=== PATIENT | male | born 1955 | race African-American/Black ===

== ENCOUNTER 2020-02-04 17:35 | Emergency (ER) | payer OTHER ==
[2020-02-04] MEDS ORDERED: ONDANSETRON HCL INJ/PF 4 MG/2 ML SDV IV ONE (18:55)
[2020-02-04] MEDS ORDERED: MORPHINE SULFATE 10 MG/ML INJ IV ONE (18:56)
--- NOTE | 2020-02-04 19:05 | ER Document Report ---
ED General - General Mode of Arrival: Ambulatory Information source: Patient TRAVEL OUTSIDE OF THE U[place]S. IN LAST 30 DAYS: No - HPI Patient complains to provider of: Nausea, vomiting, headache Onset: Other - Approximately 4 hours prior to arrival Onset/Duration: Gradual Quality of pain: Throbbing Severity: Moderate Associated symptoms: Headache, Nausea, Vomiting Exacerbated by: Denies Relieved by: Denies Similar symptoms previously: No Recently seen / treated by doctor: No <ZELDA MARES IV - Last Filed: 02/04/20 22:06> <RA GONZALES - Last Filed: 02/05/20 02:29> - General Chief Complaint: Nausea/Vomiting Stated Complaint: NAUSEA/VOMITING,HEADACHE Time Seen by Provider: 02/04/20 18:39 - HPI Notes: This is a 64-year-old male with a history of hypertension, presenting with chief complaint of headache, nausea and vomiting. Patient states symptoms started approximately 4 hours prior to arrival. Patient denies visual changes, slurred speech, unilateral extremity weakness, gait disturbance, chest pain, shortness of breath. Patient states he takes metoprolol and a "blood pressure pill that causes (him) to pee." Patient states he is compliant with his medications and has not been missing any doses. Patient states he drinks occasionally but not in excess. Patient does admit to smoking cigarettes. Patient denies illicit drug use. Patient states nothing is making his symptoms worse or better. (ZELDA MARES IV) - Related Data Allergies/Adverse Reactions: No Known Drug Allergies Allergy (Verified 02/04/20 20:09) Past Medical History - General Information source: Patient - Social History Smoking Status: Current Every Day Smoker Frequency of alcohol use: Occasional Drug Abuse: None Family History: Reviewed & Not Pertinent Patient has suicidal ideation: No Patient has homicidal ideation: No - Past Medical History Cardiac Medical History: Reports: Hx Hypertension Pulmonary Medical History: Reports: None EENT Medical History: Reports: None Neurological Medical History: Reports: None Endocrine Medical History: Reports: None Renal/ Medical History: Reports: None Malignancy Medical History: Reports None GI Medical History: Reports: None Musculoskeletal Medical History: Reports None Skin Medical History: Reports None Psychiatric Medical History: Reports: None Traumatic Medical History: Reports: None Infectious Medical History: Reports: None <ZELDA MARES IV - Last Filed: 02/04/20 22:06> Review of Systems - Review of Systems Constitutional: No symptoms reported EENT: No symptoms reported Cardiovascular: No symptoms reported Respiratory: No symptoms reported Gastrointestinal: Nausea, Vomiting Genitourinary: No symptoms reported Male Genitourinary: No symptoms reported Musculoskeletal: No symptoms reported Skin: No symptoms reported Hematologic/Lymphatic: No symptoms reported Neurological/Psychological: See HPI -: Yes All other systems reviewed and negative <ZELDA MARES IV - Last Filed: 02/04/20 22:06> Physical Exam <ZELDA MARES IV - Last Filed: 02/04/20 22:06> - Vital signs Vitals: Temp 98.8 F 02/04/20 17:36 - Notes Notes: CONSTITUTIONAL [Vital signs reviewed, Patient appears comfortable, Alert and oriented X 3, Normal stature.] HEAD [Atraumatic, Normocephalic.] EYES [Eyes are normal to inspection, No discharge from eyes, Extraocular muscles intact, Sclera are normal, Conjunctiva are normal.] ENT [Ears normal to inspection, Nose examination normal, Posterior pharynx normal, Mouth normal to inspection.] NECK [Normal ROM, No jugular venous distention, No meningeal signs, no carotid bruit.] RESPIRATORY CHEST [Chest is nontender, Breath sounds normal, No respiratory distress.] CARDIOVASCULAR [RRR, No murmurs, Normal S1 S2, No rub, No gallop.] ABDOMEN [Abdomen is nontender, No pulsatile masses, No other masses, Bowel sounds normal, No distension, No peritoneal signs, No hernias.] BACK [There is no CVA Tenderness, There is no tenderness to palpation, Normal inspection.] UPPER EXTREMITY [Inspection normal, No cyanosis, No clubbing, No edema, 2+ radial pulses.] LOWER EXTREMITY [Inspection normal, No cyanosis, No clubbing, No edema, No calf tenderness, 2+ femoral pulses.] NEURO [No focal motor deficits, No focal sensory deficits, Speech normal.] SKIN [Skin is warm, Skin is dry, Skin is normal color.] LYMPHATIC [No adenopathy in neck.] PSYCHIATRIC [Normal affect. ] (ZELDA MARES IV) Course - Laboratory Result Diagrams: 02/04/20 19:00 02/04/20 19:00 - Transfer of Care Care transferred to following provider: dr. gonzales at 2200 hours <ZELDA MARES IV - Last Filed: 02/04/20 22:06> - Laboratory Result Diagrams: 02/04/20 19:00 02/04/20 19:00 - Diagnostic Test Radiology reviewed: Image reviewed, Reports reviewed <RA GONZALES - Last Filed: 02/05/20 02:29> - Re-evaluation Re-evalutation: 02/05/20 02:27 The patient was signed out to me at shift change since some of his labs and treatments were still pending. The patient felt much better after treatment in the ER. His headache subsided and his blood pressure normalized. The patient's head CT showed no acute process. The patient is on Hydralazine and Metoprolol for high blood pressure but his PCP is in [place] and he is not going home any time soon. I told the patient he should follow up with a local PCP for management of his blood pressure. (STEFANIERA) - Vital Signs Vital signs: Temp Pulse Resp BP Pulse Ox 98.8 F 83 25 H 121/66 100 02/04/20 18:30 02/04/20 18:30 02/04/20 23:00 02/04/20 23:52 02/04/20 23:00 - Laboratory Laboratory results interpreted by me: 02/04/20 02/04/20 02/04/20 19:00 19:00 22:07 RBC 3.77 L Hgb 13.4 L MCV 102 H MCH 35.7 H RDW 17.5 H Sodium 136.7 L Creatinine 1.32 H Est GFR (MDRD) Non-Af 55 L Total Bilirubin 1.4 H Total Protein 8.5 H Urine Protein 100 H Urine Ketones 20 H Urine Blood SMALL H Discharge <ZELDA MARES IV - Last Filed: 02/04/20 22:06> <RA GONZALES - Last Filed: 02/05/20 02:29> - Discharge Clinical Impression: Hypertensive urgency Acute headache Qualifiers: Headache type: unspecified Intractability: not intractable Qualified Code(s): R51 - Headache Condition: Stable Disposition: HOME, SELF-CARE Instructions: Headache ([facility]), High Blood Pressure ([facility]) Additional Instructions: Keep a log of your blood pressures in the days and weeks to come. Follow up with your primary care doctor or another primary care doctor in the area for better management of your blood pressure. Use over the counter Tylenol, Motrin and Benadryl in combination for future headaches.
[2020-02-04 19:54] LABS: ALKALINE PHOSPHATASE 107 U/L (38-126); ANION GAP 12 (5-19); ASPARTATE AMINO TRANSFERASE 36 U/L (17-59); BILIRUBIN,DIRECT 0.2 mg/dL (0.0-0.4); BILIRUBIN,TOTAL 1.4 mg/dL (0.2-1.3); BLOOD UREA NITROGEN 18 mg/dL (7-20); CARBON DIOXIDE 26 mmol/L (22-30); CHLORIDE 99 mmol/L (98-107); GLUCOSE 103 mg/dL (75-110); TOTAL PROTEIN 8.5 g/dL (6.3-8.2)
--- NOTE | 2020-02-04 19:55 | RADIOLOGY REPORT (SQ) ---
EXAM DESCRIPTION: CT HEAD WITHOUT IMAGES COMPLETED DATE/TIME: 02/04/2020 7:39 pm REASON FOR STUDY: headache, high bp, n/v COMPARISON: None. TECHNIQUE: Axial images acquired through the brain without intravenous contrast. Images reviewed wi th bone, brain and subdural windows. Additional sagittal and coronal reconstructions were generated. Images stored on PACS. All CT scanners at this facility use dose modulation, iterative reconstruction, and/or weight based d osing when appropriate to reduce radiation dose to as low as reasonably achievable (ALARA). [facility]: Dose Right [facility]: CareDose [facility]: Dose Right [facility]: Teradose 4D [facility]: Memento RADIATION DOSE: CT Rad equipment meets quality standard of care and radiation dose reduction techniq ues were employed. CTDIvol: 53.2 mGy. DLP: 1017 mGy-cm. mGy. LIMITATIONS: None. FINDINGS: VENTRICLES: Normal size and contour. CEREBRUM: No masses. No hemorrhage. No midline shift. No evidence for acute infarction. Normal gra y/white matter differentiation. No areas of low density in the white matter. CEREBELLUM: No masses. No hemorrhage. No alteration of density. No evidence for acute infarction. EXTRAAXIAL SPACES: No fluid collections. No masses. ORBITS AND GLOBE: No intra- or extraconal masses. Normal contour of globe without masses. CALVARIUM: No fracture. PARANASAL SINUSES: No fluid or mucosal thickening. SOFT TISSUES: No mass or hematoma. OTHER: No other significant finding. IMPRESSION: NORMAL BRAIN CT WITHOUT CONTRAST. EVIDENCE OF ACUTE STROKE: NO. COMMENT: Quality ID # [id number]: Final reports with documentation of one or more dose reduction techniques (e.g., Automated exposure control, adjustment of the mA and/or kV according to patient size, use of iterative reconstruction technique) TECHNICAL DOCUMENTATION: JOB ID: [id number] 2010 [employer]- All Rights Reserved Reading location - IP/workstation name: [email or web address]
[2020-02-04 19:59] LABS: ABSOLUTE BASOPHILS # (AUTO) 0.1 10^3/uL (0.0-0.2); ABSOLUTE MONOCYTES (AUTO) 0.6 10^3/uL (0.1-1.4); TOTAL CELLS COUNTED % (AUTO) 100 %
[2020-02-04 20:04] LABS: ABSOLUTE LYMPHOCYTES (AUTO) 1.3 10^3/uL (0.5-4.7); ABSOLUTE NEUT (AUTO) 4.5 10^3/uL (1.7-8.2); BASOPHILS % (AUTO) 0.9 % (0-2); EOSINOPHILS % (AUTO) 0.1 % (0-6); HEMATOCRIT 38.5 % (37.9-51.0); HEMOGLOBIN 13.4 g/dL (13.5-17.0); LYMPHOCYTES % (AUTO) 20.9 % (13-45); MEAN CORPUSCULAR HEMOGLOBIN 35.7 pg (27.0-33.4); MEAN CORPUSCULAR VOLUME 102 fl (80-97); MONOCYTES % (AUTO) 8.5 % (3-13); PLATELET COUNT 264 10^3/uL (150-450); RED BLOOD COUNT 3.77 10^6/uL (4.35-5.55); RED CELL DISTRIBUTION WIDTH 17.5 % (11.5-14.0); SEGMENTED NEUTROPHILS % (AUTO) 69.6 % (42-78); WHITE BLOOD COUNT 6.5 10^3/uL (4.0-10.5)
[2020-02-04] MEDS ORDERED: LABETALOL HCL INJ 20 MG/4 ML DISP.SYRIN IV ONE ×2 (20:07→21:07)
[2020-02-04] MEDS ORDERED: METOCLOPRAMIDE HCL INJ/PF 10 MG/2 ML SDV IV ONE (20:17)
[2020-02-04] MEDS ORDERED: PROMETHAZINE HCL INJ 25 MG/1 ML VIAL IV ONE (21:45)
[2020-02-04] MEDS ORDERED: HYDRALAZINE HCL INJ/PF 20 MG/1 ML SDV IV ONE (21:45)
[2020-02-04 22:29] LABS: APPEARANCE,URINE CLEAR; BILIRUBIN,URINE NEGATIVE (NEGATIVE); COLOR,URINE YELLOW; GLUCOSE, URINE NEGATIVE (NEGATIVE); KETONES,URINE 20 mg/dL (NEGATIVE); LEUKOCYTE ESTERASE,URINE NEGATIVE (NEGATIVE); NITRITE,URINE NEGATIVE (NEGATIVE); PROTEIN,URINE 100 mg/dL (NEGATIVE); URINE SPECIFIC GRAVITY 1.016; UROBILINOGEN,URINE NEGATIVE mg/dL (<2.0)
[2020-02-04 22:41] LABS: URINE AMPHETAMINES SCREEN NEGATIVE; URINE BARBITURATES SCREEN NEGATIVE; URINE BENZODIAZEPINES SCREEN NEGATIVE; URINE COCAINE SCREEN NEGATIVE; URINE MARIJUANA (THC) SCREEN NEGATIVE; URINE METHADONE SCREEN NEGATIVE; URINE PHENCYCLIDINE SCREEN NEGATIVE
[2020-02-05 02:47] VITALS: BP 114/72
== END 2020-02-05 02:47 | disposition home or self-care (01) ==
LOC: ER 17:35
DX: I16.0 Hypertensive urgency (principal); R51 Headache; R11.2 Nausea with vomiting, unspecified; I10 Essential (primary) hypertension; Z79.899 Other long term (current) drug therapy; F17.210 Nicotine dependence, cigarettes, uncomplicated
CPT/HCPCS: 96376; 99284; 96374; 96375; 36415; 80307 ×2; 85025; 80053; 81001; 70450; J0360; J3490; J2765; J2270; J2550; J2405

== ENCOUNTER 2020-02-25 11:22 | Emergency (ER) | payer OTHER ==
[2020-02-25] MEDS ORDERED: NORMAL SALINE 1000 ML 1,000 ML IV ONE (12:54)
--- NOTE | 2020-02-25 12:57 | ER Document Report ---
ED General - General Chief Complaint: Low Blood Sugar Stated Complaint: WEAKNESS Time Seen by Provider: 02/25/20 12:50 TRAVEL OUTSIDE OF THE U.S. IN LAST 30 DAYS: No - HPI Patient complains to provider of: weakness Notes: Well-appearing 64-year-old male in no acute distress presents with generalized weakness fatigue malaise. All starting this morning. Patient found to have low blood glucose by paramedics. Patient does not take daily insulin is not diabetic. Denies all other symptoms. Denies fever chills cough. Patient is in the community working at the [employer]. Originally from [place]. Patient does state he has a history of congestive heart failure but is not on any daily diuretics. Has been endorsing bilateral leg swelling, decreased exercise tolerance. Denies chest pain. - Related Data Allergies/Adverse Reactions: No Known Drug Allergies Allergy (Verified 02/04/20 20:09) Past Medical History - Social History Smoking Status: Current Every Day Smoker Family History: Reviewed & Not Pertinent - Past Medical History Cardiac Medical History: Reports: Hx Hypertension Review of Systems - Review of Systems Notes: REVIEW OF SYSTEMS: CONSTITUTIONAL: -fevers, -chills EENT: -eye pain, -difficulty swallowing, -nasal congestion CARDIOVASCULAR: -chest pain, -syncope. RESPIRATORY: -cough, -SOB GASTROINTESTINAL: -abdominal pain, -nausea, -vomiting, -diarrhea GENITOURINARY: -dysuria, -hematuria MUSCULOSKELETAL: -back pain, -neck pain SKIN: -rash or skin lesions. HEMATOLOGIC: -easy bruising or bleeding. LYMPHATIC: -swollen, enlarged glands. NEUROLOGICAL: -altered mental status or loss of consciousness, -headache, -neur ologic symptoms PSYCHIATRIC: -anxiety, -depression. ALL OTHER SYSTEMS REVIEWED AND NEGATIVE. Physical Exam - Vital signs Vitals: Temp 98.1 F 02/25/20 12:18 - Notes Notes: PHYSICAL EXAMINATION: GENERAL: Well-appearing, well-nourished and in no acute distress. HEAD: Atraumatic, normocephalic. EYES: Pupils equal round, sclera anicteric, conjunctiva are normal. ENT: Surgical mask in place. NECK: Normal range of motion, LUNGS: No respiratory Distress, normal chest rise EXTREMITIES: Normal range of motion, No cyanosis. NEUROLOGICAL: Cranial nerves grossly intact. Normal speech, PSYCH: Normal mood, normal affect. SKIN: Warm, Dry, Course - Re-evaluation Re-evalutation: 02/25/20 12:59 Well-appearing 64-year-old man presents with a complaint of weakness. And have incidental finding low blood glucose. 02/25/20 15:08 Patient has no signs of anemia feeling improved. Patient's chest x-ray does have possible pulmonary edema, no hypoxia no supplemental oxygen required. Patient does have elevation in proBNP. Patient has a history of heart failure but is been noncompliant with oral Lasix. Will give dose of IV Lasix in the emergency department. Will write prescription for more oral Lasix. Patient also found to be spilling some blood into his urine. Both have arranged for follow-up with urology and cardiology in the community. Given strict return precautions if anything should worsen or change please return. - Vital Signs Vital signs: Temp Pulse Resp BP Pulse Ox 98.1 F 100 02/25/20 12:18 02/25/20 12:21 - Laboratory Result Diagrams: 02/25/20 13:20 02/25/20 13:20 Laboratory results interpreted by me: 02/25/20 02/25/20 02/25/20 11:28 13:20 13:20 RBC MCV MCH RDW Baso % (Auto) Creatinine 1.30 H Est GFR (MDRD) Non-Af 56 L POC Glucose 61 L NT-Pro-B Natriuret Pep 425 H Total Protein 8.5 H Urine Protein Urine Ketones Urine Blood 02/25/20 02/25/20 13:20 14:21 RBC 3.92 L MCV 103 H MCH 36.0 H RDW 17.2 H Baso % (Auto) 2.2 H Creatinine Est GFR (MDRD) Non-Af POC Glucose NT-Pro-B Natriuret Pep Total Protein Urine Protein >=500 H Urine Ketones 20 H Urine Blood MODERATE H - EKG Interpretation by Me Additional EKG results interpreted by me: 02/25/20 15:08 Sinus rhythm, no ST elevations or depressions, no pathologic T wave inversions, normal IA, normal QRS. Discharge - Discharge Clinical Impression: Weakness Condition: Stable Disposition: HOME, SELF-CARE Instructions: Hematuria ([facility]), Congestive Heart Failure ([facility]) Prescriptions: Furosemide [Lasix 40 mg Tablet] 40 mg PO QAM #14 tablet Referrals: WILFRIDO LOPEZ MD [ACTIVE STAFF] - Follow up as needed POINT,ABDON Mendoza MD [NO LOCAL MD] - Follow up as needed
[2020-02-25 13:54] LABS: ABSOLUTE BASOPHILS # (AUTO) 0.1 10^3/uL (0.0-0.2); ABSOLUTE LYMPHOCYTES (AUTO) 1.4 10^3/uL (0.5-4.7); ABSOLUTE MONOCYTES (AUTO) 0.2 10^3/uL (0.1-1.4); ABSOLUTE NEUT (AUTO) 2.3 10^3/uL (1.7-8.2); BASOPHILS % (AUTO) 2.2 % (0-2); EOSINOPHILS % (AUTO) 0.5 % (0-6); HEMATOCRIT 40.2 % (37.9-51.0); HEMOGLOBIN 14.1 g/dL (13.5-17.0); MEAN CORPUSCULAR VOLUME 103 fl (80-97); MONOCYTES % (AUTO) 4.6 % (3-13); PLATELET COUNT 261 10^3/uL (150-450); RED BLOOD COUNT 3.92 10^6/uL (4.35-5.55); RED CELL DISTRIBUTION WIDTH 17.2 % (11.5-14.0); SEGMENTED NEUTROPHILS % (AUTO) 57.7 % (42-78); TOTAL CELLS COUNTED % (AUTO) 100 %
[2020-02-25 14:06] LABS: CARBON DIOXIDE 22 mmol/L (22-30); TOTAL PROTEIN 8.5 g/dL (6.3-8.2)
[2020-02-25 14:09] LABS: ALKALINE PHOSPHATASE 103 U/L (38-126); ANION GAP 16 (5-19); ASPARTATE AMINO TRANSFERASE 43 U/L (17-59); BILIRUBIN,DIRECT 0.1 mg/dL (0.0-0.4); BILIRUBIN,TOTAL 1.1 mg/dL (0.2-1.3); BLOOD UREA NITROGEN 19 mg/dL (7-20); CALCIUM 9.4 mg/dL (8.4-10.2); CHLORIDE 100 mmol/L (98-107); GLUCOSE 104 mg/dL (75-110); POTASSIUM 4.7 mmol/L (3.6-5.0)
[2020-02-25 14:25] LABS: NT PRO BNP 425 pg/mL (<125)
[2020-02-25 14:27] LABS: TROPONIN I < 0.012 ng/mL
[2020-02-25 14:35] LABS: FREE T4 (FREE THYROXINE) 0.88 ng/dL (0.78-2.19)
[2020-02-25 14:37] LABS: APPEARANCE,URINE CLEAR; BILIRUBIN,URINE NEGATIVE (NEGATIVE); COLOR,URINE YELLOW; GLUCOSE, URINE NEGATIVE (NEGATIVE); KETONES,URINE 20 mg/dL (NEGATIVE); PROTEIN,URINE >=500 mg/dL (NEGATIVE); UROBILINOGEN,URINE NEGATIVE mg/dL (<2.0)
[2020-02-25 14:49] LABS: THYROID STIMULATING HORMONE 1.01 uIU/mL (0.47-4.68)
[2020-02-25] MEDS ORDERED: FUROSEMIDE INJ/PF 20 MG/2 ML SDV IV ONE (15:06)
--- NOTE | 2020-02-25 15:28 | RADIOLOGY REPORT (SQ) ---
EXAM DESCRIPTION: CHEST SINGLE VIEW IMAGES COMPLETED DATE/TIME: 02/25/2020 3:10 pm REASON FOR STUDY: Weakness COMPARISON: None. EXAM PARAMETERS: NUMBER OF VIEWS: One view. TECHNIQUE: Single frontal radiographic view of the chest acquired. RADIATION DOSE: NA LIMITATIONS: None. FINDINGS: LUNGS AND PLEURA: No opacities, masses or pneumothorax. No pleural effusion. MEDIASTINUM AND HILAR STRUCTURES: No masses. Contour normal. HEART AND VASCULAR STRUCTURES: Heart normal in size. Normal vasculature. BONES: No acute findings. HARDWARE: None in the chest. OTHER: No other significant finding. IMPRESSION: NO ACUTE RADIOGRAPHIC FINDING IN THE CHEST. TECHNICAL DOCUMENTATION: JOB ID: [id number] 2010 [employer]- All Rights Reserved Reading location - IP/workstation name: [email or web address]
[2020-02-25 15:57] VITALS: BP 189/100
--- NOTE | 2020-02-25 18:11 | EKG REPORT ---
SEVERITY:- ABNORMAL ECG - SINUS RHYTHM PROBABLE LEFT ATRIAL ABNORMALITY NONSPECIFIC INTRAVENTRICULAR CONDUCTION DELAY ABNRM R PROG, CONSIDER ASMI OR LEAD PLACEMENT : Confirmed by: Raji Cervantes MD 25-Feb-2020 18:10:52
== END 2020-02-25 15:59 | disposition home or self-care (01) ==
LOC: ER 11:22
DX: R53.1 Weakness (principal); I50.9 Heart failure, unspecified; E16.2 Hypoglycemia, unspecified; F17.200 Nicotine dependence, unspecified, uncomplicated; R31.9 Hematuria, unspecified; Z91.14 Patient's other noncompliance with medication regimen; R79.89 Other specified abnormal findings of blood chemistry
CPT/HCPCS: 93005; 99285; 96361; 96374; 36415; 87086; 84439; 82962; 84443; 85025; 80053; 81001; 84484; 83880; 71045; 93010; J1940; J7030

== ENCOUNTER 2020-02-26 11:27 | Observation (INO) | payer OTHER ==
[2020-02-26] MEDS ORDERED: ONDANSETRON HCL INJ/PF 4 MG/2 ML SDV IV ONE (12:11)
[2020-02-26] MEDS ORDERED: FENTANYL CITRATE INJ/PF 100 MCG/2 ML AMPUL IV ONE (12:11)
--- NOTE | 2020-02-26 12:33 | ER Document Report ---
ED General - General Chief Complaint: Chest Pain Stated Complaint: CHEST PAIN Time Seen by Provider: 02/26/20 11:38 Notes: 64-year-old male presents with severe chest pain throughout his entire anterior chest radiating down to his belly through to his back and all 4 extremities. He says it started this morning but actually began yesterday after he left the ED and is gotten worse since then. Has been nauseous and has not been anything all day today. No fever no cough no shortness of breath. He was seen here yesterday for fatigue and diagnosed with mild CHF for the first time. He did not fill his Lasix and has previously been noncompliant. He is visiting from [facility] [place]. He has a history of hypertension and says he took his meds this morning. TRAVEL OUTSIDE OF THE [place].S. IN LAST 30 DAYS: No - Related Data Allergies/Adverse Reactions: No Known Drug Allergies Allergy (Verified 02/04/20 20:09) Past Medical History - General Information source: Patient - Social History Smoking Status: Current Some Day Smoker Smoking Education Provided: Yes - The patient ED visit today was directly related to their abuse of tobacco. Family History: Reviewed & Not Pertinent - Past Medical History Cardiac Medical History: Reports: Hx Congestive Heart Failure, Hx Hypertension Past Surgical History: Reports: Hx Orthopedic Surgery - R knee Review of Systems - Review of Systems Notes: REVIEW OF SYSTEMS GEN: Denies fever, chills, weight loss ENT: Denies sore throat, nasal discharge, ear pain EYES: Denies blurry vision, eye pain, discharge CV: See HPI RESP: Denies cough, shortness of breath, wheezing GI: The HPI MSK: Denies joint pain/swelling, edema, SKIN: Denies rash, skin lesions LYMPH: Denies swollen glands/lymph nodes NEURO: Denies headache, focal weakness or numbness, dizziness PSYCH: Denies depression, suicidal or homicidal ideation PHYSICAL EXAMINATION General: Anxious in pain nondiaphoretic Head: Atraumatic, normocephalic ENT: Mouth normal, oropharynx moist, no exudates or tonsillar enlargement Eyes: Conjunctiva normal, pupils equal, lids normal Neck: No JVD, supple, no guarding CVS: Normal rate, regular rhythm, no murmurs Resp: No resp distress, equal and normal breath sounds bilaterally GI: Diffuse abdominal tenderness g Ext: No deformities, no edema, normal range of motion in upper and lower ext Back: No CVA or midline TTP Skin: No rash, warm Lymphatic: No lymphadeopathy noted Neuro: Awake, alert. Face symmetric. GCS 15. Physical Exam - Vital signs Vitals: Temp Resp Pulse Ox 98.5 F 15 99 02/26/20 11:44 02/26/20 11:44 02/26/20 11:44 Course - Re-evaluation Re-evalutation: 02/26/20 14:51 Patient presents with chest and abdominal pain in the setting of recently diagnosed CHF. He is hypertensive and looks sick Concern for aortic dissection Placed IV myself. CTA chest and pelvis negative troponin detectable but not impressively high and EKG is nonspecific. Patient's heart score is 5. His lipase is negative so doubt pancreatitis, on repeat exam he does not have any pain or tenderness in the belly He will be admitted for cardiac work-up and was discussed with Dr. Souza. - Vital Signs Vital signs: Temp Pulse Resp BP Pulse Ox 98.5 F 15 99 02/26/20 11:44 02/26/20 11:44 02/26/20 11:44 - Laboratory Result Diagrams: 02/26/20 12:10 02/26/20 12:10 Laboratory results interpreted by me: 02/26/20 02/26/20 12:10 12:10 RBC 3.81 L MCV 103 H MCH 35.8 H RDW 16.7 H Sodium 136.9 L Chloride 95 L BUN 24 H Creatinine 1.55 H Est GFR ( Amer) 55 L Est GFR (MDRD) Non-Af 46 L - Diagnostic Test Radiology reviewed: Image reviewed, Reports reviewed - EKG Interpretation by Ia EKG shows normal: Sinus rhythm Rate: Normal Rhythm: NSR When compared to previous EKG there are: Previous EKG unavailable - No ST change s or T wave inversions Procedures - Ultrasound/Bedside Ultrasound/Bedside Ultrasound: Other - IV placement left upper extremity ultrasound-guided - Additional Procedures IV insertion Additional Procedures: IV insertion - 20-gauge attempted right deep brachial f ben. Attempted left the brachial successful. Maury blood. Flush and secured. Ultrasound was used. Sterile technique was used. Discharge - Discharge Clinical Impression: Chest pain Qualifiers: Chest pain type: unspecified Qualified Code(s): R07.9 - Chest pain, unspecified Condition: Poor Disposition: ADMITTED OBSERVATION Admitting Provider: Gregory (Hospitalist) Unit Admitted: Telemetry
[2020-02-26 12:37] LABS: ABSOLUTE BASOPHILS # (AUTO) 0.1 10^3/uL (0.0-0.2); ABSOLUTE LYMPHOCYTES (AUTO) 1.7 10^3/uL (0.5-4.7); ABSOLUTE MONOCYTES (AUTO) 0.9 10^3/uL (0.1-1.4); ABSOLUTE NEUT (AUTO) 6.6 10^3/uL (1.7-8.2); BASOPHILS % (AUTO) 0.8 % (0-2); EOSINOPHILS % (AUTO) 0.2 % (0-6); HEMATOCRIT 39.3 % (37.9-51.0); HEMOGLOBIN 13.6 g/dL (13.5-17.0); LYMPHOCYTES % (AUTO) 18.1 % (13-45); MEAN CORPUSCULAR HEMOGLOBIN 35.8 pg (27.0-33.4); MEAN CORPUSCULAR HGB CONC 34.7 g/dL (32.0-36.0); MEAN CORPUSCULAR VOLUME 103 fl (80-97); MONOCYTES % (AUTO) 9.7 % (3-13); PLATELET COUNT 244 10^3/uL (150-450); RED BLOOD COUNT 3.81 10^6/uL (4.35-5.55); RED CELL DISTRIBUTION WIDTH 16.7 % (11.5-14.0); SEGMENTED NEUTROPHILS % (AUTO) 71.2 % (42-78); TOTAL CELLS COUNTED % (AUTO) 100 %
[2020-02-26 12:41] LABS: WHITE BLOOD COUNT 9.2 10^3/uL (4.0-10.5)
[2020-02-26 13:00] LABS: ANION GAP 14 (5-19); BLOOD UREA NITROGEN 24 mg/dL (7-20); CALCIUM 9.8 mg/dL (8.4-10.2); CARBON DIOXIDE 28 mmol/L (22-30); CHLORIDE 95 mmol/L (98-107); GLUCOSE 106 mg/dL (75-110); POTASSIUM 4.5 mmol/L (3.6-5.0)
--- NOTE | 2020-02-26 13:05 | RADIOLOGY REPORT (SQ) ---
EXAM DESCRIPTION: CHEST SINGLE VIEW IMAGES COMPLETED DATE/TIME: 02/26/2020 12:58 pm REASON FOR STUDY: sob COMPARISON: 02/25/2020 EXAM PARAMETERS: NUMBER OF VIEWS: One view. TECHNIQUE: Single frontal radiographic view of the chest acquired. RADIATION DOSE: NA LIMITATIONS: None. FINDINGS: LUNGS AND PLEURA: No opacities, masses or pneumothorax. No pleural effusion. MEDIASTINUM AND HILAR STRUCTURES: No masses. Contour normal. HEART AND VASCULAR STRUCTURES: Heart normal in size. Normal vasculature. BONES: No acute findings. HARDWARE: None in the chest. OTHER: No other significant finding. IMPRESSION: NO ACUTE RADIOGRAPHIC FINDING IN THE CHEST. TECHNICAL DOCUMENTATION: JOB ID: [id number] 2010 [employer]- All Rights Reserved Reading location - IP/workstation name: [email or web address]
--- NOTE | 2020-02-26 13:16 | RADIOLOGY REPORT (SQ) ---
EXAM DESCRIPTION: CTA CHEST IMAGES COMPLETED DATE/TIME: 02/26/2020 1:00 pm REASON FOR STUDY: Chest pain COMPARISON: None. TECHNIQUE: CT scan of the chest performed using helical scanning technique with dynamic intravenous contrast injection. Images reviewed with lung, soft tissue and bone windows. Reconstructed coronal and sagittal MPR images reviewed. Additional 3 dimensional post-processing performed to develop Maximal Intensity Projection images (MT P). All images stored on PACS. All CT scanners at this facility use dose modulation, iterative reconstruction, and/or weight based d osing when appropriate to reduce radiation dose to as low as reasonably achievable (ALARA). [facility]: Dose Right [facility]: CareDose [facility]: Dose Right [facility]: Teradose 4D [facility]: Switchfly CONTRAST TYPE AND DOSE: contrast/concentration: Isovue 350.00 mmol/ml; Total Contrast Delivered: 93. 0 ml; Total Saline Delivered: 70.0 ml Contrast bolus adequate for pulmonary arteries and aorta. RENAL FUNCTION: See abdomen RADIATION DOSE: CT Rad equipment meets quality standard of care and radiation dose reduction techniq ues were employed. CTDIvol: 10.8 - 14.2 mGy. DLP: 1312 mGy-cm. . LIMITATIONS: None. FINDINGS: LUNGS AND PLEURA: No masses, infiltrates, or pneumothorax. No pleural effusions or pleura l calcifications. AORTA AND GREAT VESSELS: No aneurysm. Contrast bolus not optimized for the aorta. HEART: No pericardial effusion. Scattered coronary atherosclerosis. Normal heart size. Normal right to left ventricular ratio. PULMONARY ARTERIES: No emboli visualized in the main pulmonary arteries or the segmental branches. HILAR AND MEDIASTINAL STRUCTURES: No identified masses or abnormal nodes. HARDWARE: None in the chest. UPPER ABDOMEN: See separate report of the CT of the abdomen. THYROID AND OTHER SOFT TISSUES: No masses. No adenopathy. BONES: No acute or significant finding. 3D MIPS: Confirm above findings. OTHER: No other significant finding. IMPRESSION: 1. No evidence of pulmonary embolus. No acute aortic pathology. 2. No other evidence of acute intrathoracic process. 3. Coronary atherosclerosis. COMMENT: Quality ID # [id number]: Final reports with documentation of one or more dose reduction techniques (e.g., Automated exposure control, adjustment of the mA and/or kV according to patient size, use of iterative reconstruction technique) TECHNICAL DOCUMENTATION: JOB ID: [id number] 2011 [employer]- All Rights Reserved Reading location - IP/workstation name: [email or web address]
[2020-02-26] MEDS ORDERED: NORMAL SALINE 1000 ML 1,000 ML IV ONE (13:25)
--- NOTE | 2020-02-26 13:59 | RADIOLOGY REPORT (SQ) ---
EXAM DESCRIPTION: CTA ABDOMEN/PELVIS W WO IMAGES COMPLETED DATE/TIME: 02/26/2020 1:00 pm REASON FOR STUDY: cp to abd COMPARISON: None TECHNIQUE: CT scan of the abdominal aorta extending to the iliac bifurcation performed with and with out intravenous contrast using helical scanning technique with dynamic intravenous contrast injection . Images reviewed with lung, soft tissue, and bone windows. Reconstructed coronal and sagittal MPR im ages reviewed. All images stored on PACS. Advanced 3D imaging as volume rendering, MIPS, SSD performed? yes All CT scanners at this facility use dose modulation, iterative reconstruction, and/or weight based d osing when appropriate to reduce radiation dose to as low as reasonably achievable (ALARA). [facility]: Dose Right [facility]: CareDose [facility]: Dose Right [facility]: Teradose 4D [facility]: Plan B Funding CONTRAST TYPE AND DOSE: See chest RENAL FUNCTION: Creatinine 1.30 LIMITATIONS: None. FINDINGS: AORTA AND VESSELS: No aneurysm. No dissection. Renal arteries, SMA, celiac are all patent. 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 LUNG BASES: See same-day chest CT. LIVER: Normal size. No masses or dilated ducts. SPLEEN: Normal size. No focal lesions. PANCREAS: No masses. No significant calcifications. No adjacent inflammation or peripancreatic fluid collections. Pancreatic duct not dilated. GALLBLADDER: No identified stones by CT criteria. No inflammatory changes to suggest cholecystitis. ADRENAL GLANDS: No significant masses or asymmetry. RIGHT KIDNEY AND URETER: No mass, calculi or urinary tract obstruction. LEFT KIDNEY AND URETER: No mass, calculi or urinary tract obstruction. RETROPERITONEUM: No retroperitoneal adenopathy, hemorrhage or masses. BOWEL AND PERITONEAL CAVITY: Small hiatal hernia. No focal bowel wall thickening. No evidence of in testinal obstruction. APPENDIX: Not identified. PELVIS: Decompressed urinary bladder with mild circumferential wall thickening, likely secondary to decompressed state. No pelvic free fluid, adenopathy or mass. ABDOMINAL WALL: No masses. No hernias. BONY STRUCTURES: No significant or acute findings. 3-D IMAGING: Confirms the above findings. OTHER: No other significant finding. IMPRESSION: NO ABDOMINAL AORTIC ANEURYSM, DISSECTION OR SIGNIFICANT STENOSIS. NO OTHER EVIDENCE OF ACUTE INTRA-ABDOMINAL/PELVIC PROCESS. TECHNICAL DOCUMENTATION: JOB ID: [id number] Quality ID # [id number]: Final reports with documentation of one or more dose reduction techniques (e.g., Au tomated exposure control, adjustment of the mA and/or kV according to patient size, use of iterative reconstruction technique) 2010 [email or web address]- All Rights Reserved Reading location - IP/workstation name: [email or web address]
[2020-02-26] MEDS ORDERED: ASPIRIN 325 MG TABLET PO ONE (14:39)
[2020-02-26] MEDS ORDERED: IPRATROPIUM/ALBUTEROL 0.5-2.5 MG/3 ML AMPUL NEB PRN (15:52)
[2020-02-26] MEDS ORDERED: ACETAMINOPHEN 325 MG TABLET PO PRN (15:52)
[2020-02-26] MEDS ORDERED: OXYCODONE-ACETAMINOPHEN 5-325 MG TABLET PO PRN (15:52)
[2020-02-26] MEDS ORDERED: ONDANSETRON HCL INJ/PF 4 MG/2 ML SDV IV PRN (15:52)
[2020-02-26] MEDS ORDERED: PROMETHAZINE HCL INJ 25 MG/1 ML VIAL IV PRN (15:52)
[2020-02-26] MEDS ORDERED: MAGNESIUM HYDROXIDE SUSP 30 ML UDCUP PO PRN (15:52)
[2020-02-26] MEDS ORDERED: TEMAZEPAM 7.5 MG CAPSULE PO PRN (15:52)
[2020-02-26] MEDS ORDERED: HYDRALAZINE HCL INJ/PF 20 MG/1 ML SDV IV PRN (16:00)
[2020-02-26] MEDS ORDERED: METOPROLOL TARTRATE PF/INJ 5 MG/5 ML SDV IV PRN (16:00)
--- NOTE | 2020-02-26 16:28 | EKG REPORT ---
SEVERITY:- BORDERLINE ECG - SINUS RHYTHM PROBABLE LEFT ATRIAL ABNORMALITY BORDERLINE PROLONGED QT INTERVAL : Confirmed by: Raji Cervantes MD 26-Feb-2020 16:28:10
[2020-02-26] MEDS: AMLODIPINE BESYLATE 5 MG TABLET PO SCH (17:04)
[2020-02-26] MEDS: NORMAL SALINE 1000 ML 1,000 ML IV PRN (17:06)
--- NOTE | 2020-02-26 19:52 | PDOC H&P ---
<ELIZABETH ONEAL R - Last Filed: 02/26/20 19:53> History of Present Illness Admission Date/PCP: 02/26/20 15:52 History of Present Illness: RAMIRO BASHIR is a 64 year old male past medical history of tobacco abuse, EtOH abuse, hypertension, CKD, atrial fibrillation, who is here in [facility] from [facility] for work, patient presented to nausea, vomiting, chest pain, hematemesis and hematochezia. This morning patient woke up very nauseous, which was followed by retching and one episode of hematemesis, this was followed with midepigastric chest pain which was constant about 2 hours, felt like pressure, 5 out of 10 on severity scale, no alleviating or exacerbating factor was identified, nonradiating, sweating and subjective fever. Patient also mentions that this morning when he used restroom he noted blood work mixed with his stool. Patient denies any previous history of hematemesis, cirrhosis, endorses history of GERD, denies any history of CAD, had a stress test 10 years ago which was reported as normal, family history is positive for CAD on both mother and father side. In ED a CTA chest, CT abdomen pelvis was unremarkable, was also noted to to be hypertensive, with mildly elevated troponin, and no acute EKG changes. Tex herbert was consulted for admission. Past Medical History Cardiac Medical History: Reports: Congestive Heart Failure, Hypertension Psychiatric Medical History: Denies: Depression Past Surgical History Past Surgical History: Reports: Orthopedic Surgery - R knee Social History Smoking Status: Current Some Day Smoker Frequency of Alcohol Use: Social Drugs: None Hx Prescription Drug Abuse: No Family History Family History: Reviewed & Not Pertinent Parental Family History Reviewed: Yes Children Family History Reviewed: Yes Sibling(s) Family History Reviewed.: Yes Medication/Allergy Home Medications: Metoprolol Tartrate [Lopressor 25 mg Tablet] 25 mg PO DAILY 02/26/20 Allergies/Adverse Reactions: No Known Drug Allergies Allergy (Verified 02/04/20 20:09) Review of Systems Review of Systems: as per hpi Physical Exam Vital Signs: Temp Pulse Resp BP Pulse Ox 97.9 F 72 22 H 190/93 H 100 02/26/20 17:53 02/26/20 17:53 02/26/20 17:53 02/26/20 17:53 02/26/20 17:53 Intake & Output 02/25/20 02/26/20 02/27/20 06:59 06:59 06:59 Intake Total 1035 Balance 1035 Weight 83 kg General appearance: PRESENT: no acute distress, well-developed, well-nourished Head exam: PRESENT: atraumatic, normocephalic Respiratory exam: PRESENT: clear to auscultation julieta. ABSENT: rales, rhonchi, wheezes Cardiovascular exam: PRESENT: RRR. ABSENT: diastolic murmur, rubs, systolic murmur GI/Abdominal exam: PRESENT: normal bowel sounds, soft. ABSENT: distended, guarding, mass, organolmegaly, rebound, tenderness Extremities exam: PRESENT: full ROM. ABSENT: calf tenderness, clubbing, pedal edema Neurological exam: PRESENT: alert, awake, oriented to person, oriented to place, oriented to time, oriented to situation, CN II-XII grossly intact. ABSENT: motor sensory deficit Results Laboratory Results: 02/26/20 12:10 02/26/20 12:10 02/26/20 02/26/20 02/26/20 12:10 12:10 12:10 WBC 9.2 D RBC 3.81 L Hgb 13.6 Hct 39.3 MCV 103 H MCH 35.8 H MCHC 34.7 RDW 16.7 H Plt Count 244 Seg Neutrophils % 71.2 Sodium 136.9 L Potassium 4.5 Chloride 95 L Carbon Dioxide 28 Anion Gap 14 BUN 24 H Creatinine 1.55 H Est GFR ( Amer) 55 L Glucose 106 Calcium 9.8 Lipase 55.0 02/26/20 12:10 Troponin I 0.013 Impressions: Chest X-Ray 02/26/20 11:39 IMPRESSION: NO ACUTE RADIOGRAPHIC FINDING IN THE CHEST. Abdomen/Pelvis CTA 02/26/20 12:12 IMPRESSION: NO ABDOMINAL AORTIC ANEURYSM, DISSECTION OR SIGNIFICANT STENOSIS. NO OTHER EVIDENCE OF ACUTE INTRA-ABDOMINAL/PELVIC PROCESS. Chest/Abdomen CTA 02/26/20 12:12 IMPRESSION: 1. No evidence of pulmonary embolus. No acute aortic pathology. 2. No other evidence of acute intrathoracic process. 3. Coronary atherosclerosis. Assessment and Plan - Diagnosis (1) Chest pain Qualifiers: Chest pain type: unspecified Qualified Code(s): R07.9 - Chest pain, unspecified Is this a current diagnosis for this admission?: Yes Plan: Positive family history of CAD. Had a stress test 10 years ago which was reported as normal as per patient. Minimally elevated troponins. It is possible that this chest pain was due to esophageal retching/bleeding as patient reports severe vomiting and nausea before developing chest pain. Patient has history of EtOH abuse but denies any history of cirrhosis or previous variceal bleeding. Given history of smoking, untreated hypertension, CKD and positive family history patient is high risk for CAD. Admit to telemetry, antiplatelets, statins, optimize BP, sublingual nitroglycerin, IV morphine, consult cardiology for possible stress test for further risk stratification. (2) Hypertensive urgency Is this a current diagnosis for this admission?: Yes Plan: History of uncontrolled hypertension. Presented with mildly elevated troponin, worsening CKD and chest pain. Takes amlodipine at home. Admit to telemetry, JANET, beta-blockers, calcium channel shmuel. Adjust meds as needed. Goal of decreasing blood pressure to 120s 130s in the next 24 to 48 hours. (3) Tobacco abuse Is this a current diagnosis for this admission?: Yes Plan: Counseled on quitting. NicoDerm patch will be provided. (4) History of ETOH abuse Is this a current diagnosis for this admission?: Yes Plan: History of EtOH abuse. Currently only social drinker. Denies any history of withdrawal or DT. Denies any auditory or visual hallucinations. Admit telemetry, monitor for withdrawal. DT precautions. (5) Hematemesis Qualifiers: Nausea presence: with nausea Qualified Code(s): K92.0 - Hematemesis Is this a current diagnosis for this admission?: Yes Plan: Preceded by severe nausea, dry heaves and retching and severe vomiting. Denies any previous history of hematemesis. History of EtOH abuse. Denies any history of cirrhosis or variceal bleeding. CTA chest negative for any dissection or esophageal rupture. Admit to telemetry, monitor H&H, consult surgery for possible upper and lower GI endoscopy. Unfortunately GI consult is not available until 03/03/2020. (6) Hematochezia Is this a current diagnosis for this admission?: Yes Plan: Denies any family or personal history of GI malignancy. History of EtOH abuse. Has never had a colonoscopy. This could be due to upper GI bleed. Hemoglobin stable. Will consult surgery for possible upper and lower GI endoscopy. Unfortunately no GI consult is available until 03/03/2020. <CONCEPCION PASTRANA - Last Filed: 02/27/20 08:09> History of Present Illness Admission Date/PCP: 02/26/20 15:52 History of Present Illness: RAMIRO BASHIR is a 64 year old male Physical Exam Vital Signs: Temp Pulse Resp BP Pulse Ox 98.1 F 79 18 144/74 H 100 02/26/20 23:46 02/27/20 02:00 02/26/20 23:46 02/26/20 23:46 02/26/20 23:46 Intake & Output 02/26/20 02/27/20 02/28/20 06:59 06:59 06:59 Intake Total 2260 Balance 2260 Weight 83 kg Results Laboratory Results: 02/27/20 04:48 02/27/20 04:48 02/26/20 02/26/20 02/26/20 12:10 12:10 12:10 WBC 9.2 D RBC 3.81 L Hgb 13.6 Hct 39.3 MCV 103 H MCH 35.8 H MCHC 34.7 RDW 16.7 H Plt Count 244 Seg Neutrophils % 71.2 Sodium 136.9 L Potassium 4.5 Chloride 95 L Carbon Dioxide 28 Anion Gap 14 BUN 24 H Creatinine 1.55 H Est GFR ( Amer) 55 L Glucose 106 Calcium 9.8 Magnesium Total Bilirubin AST Alkaline Phosphatase Total Protein Albumin Triglycerides Cholesterol LDL Cholesterol Direct VLDL Cholesterol HDL Cholesterol Lipase 55.0 TSH Free T4 02/27/20 02/27/20 02/27/20 04:48 04:48 04:48 WBC 5.7 RBC 3.54 L Hgb 12.7 L Hct 36.5 L MCV 103 H MCH 35.8 H MCHC 34.7 RDW 16.6 H Plt Count 188 Seg Neutrophils % 50.4 Sodium 135.1 L Potassium 3.6 Chloride 99 Carbon Dioxide 27 Anion Gap 9 BUN 21 H Creatinine 1.38 H Est GFR ( Amer) > 60 Glucose 87 Calcium 8.8 Magnesium 1.3 L Total Bilirubin 1.8 H AST 41 Alkaline Phosphatase 79 Total Protein 6.8 Albumin 3.9 Triglycerides 80 Cholesterol 197.36 LDL Cholesterol Direct 96 VLDL Cholesterol 16.0 HDL Cholesterol 88 Lipase TSH 2.24 Free T4 1.51 02/26/20 02/26/20 02/27/20 12:10 18:27 00:34 Troponin I 0.013 0.012 0.019 Impressions: Chest X-Ray 02/26/20 11:39 IMPRESSION: NO ACUTE RADIOGRAPHIC FINDING IN THE CHEST. Abdomen/Pelvis CTA 02/26/20 12:12 IMPRESSION: NO ABDOMINAL AORTIC ANEURYSM, DISSECTION OR SIGNIFICANT STENOSIS. NO OTHER EVIDENCE OF ACUTE INTRA-ABDOMINAL/PELVIC PROCESS. Chest/Abdomen CTA 02/26/20 12:12 IMPRESSION: 1. No evidence of pulmonary embolus. No acute aortic pathology. 2. No other evidence of acute intrathoracic process. 3. Coronary atherosclerosis. Assessment and Plan - Diagnosis (1) Detectable troponin Is this a current diagnosis for this admission?: Yes
[2020-02-26] MEDS ORDERED: CARVEDILOL 12.5 MG TABLET PO SCH (20:00)
[2020-02-26] MEDS: LISINOPRIL 10 MG TABLET PO SCH (21:33)
[2020-02-26] MEDS: PANTOPRAZOLE SODIUM 40 MG VIAL IV SCH (21:33)
[2020-02-26] MEDS ORDERED: ATORVASTATIN CALCIUM 40 MG TABLET PO SCH (22:00)
--- NOTE | 2020-02-26 22:05 | PDOC CONSULTATION ---
Consultation Consult Date: 02/26/20 Attending physician:: ELIZABETH ONEAL Provider Consulted: LORRIE FATIMA Consult reason:: Hematemesis and hematochezia History of Present Illness Admission Date/PCP: 02/26/20 15:52 History of Present Illness: RAMIRO BASHIR is a 64 year old male past medical history of tobacco abuse, EtOH abuse, hypertension, CKD, atrial fibrillation, who is here in [facility] from [facility] for work, patient presented to nausea, vomiting, chest pain, hematemesis and hematochezia. This morning patient woke up very nauseous, which was followed by retching and one episode of hematemesis, this was followed with midepigastric chest pain which was constant about 2 hours, felt like pressure, 5 out of 10 on severity scale, no alleviating or exacerbating factor was identified, nonradiating, sweating and subjective fever. Patient also mentions that this morning when he used restroom he noted blood work mixed with his stool. Patient denies any previous history of hematemesis, cirrhosis, endorses history of GERD, denies any history of CAD, had a stress test 10 years ago which was reported as normal, family history is positive for CAD on both mother and father side. The patient admits to be drinking drinking rum a heavily. In ED a CTA chest, CT abdomen pelvis was unremarkable, was also noted to to be hypertensive, with mildly elevated troponin, and no acute EKG changes. Hospitalist was consulted for admission. Past Medical History Cardiac Medical History: Reports: Congestive Heart Failure, Hypertension Psychiatric Medical History: Reports: Alcohol Dependency Denies: Depression Past Surgical History Past Surgical History: Reports: Orthopedic Surgery - R knee Social History Smoking Status: Current Some Day Smoker Frequency of Alcohol Use: Heavy Drugs: None Hx Prescription Drug Abuse: No Family History Family History: Reviewed & Not Pertinent Parental Family History Reviewed: No Children Family History Reviewed: NA Sibling(s) Family History Reviewed.: NA Medication/Allergy Home Medications: Metoprolol Tartrate [Lopressor 25 mg Tablet] 25 mg PO DAILY 02/26/20 Allergies/Adverse Reactions: No Known Drug Allergies Allergy (Verified 02/04/20 20:09) Review of Systems Constitutional: PRESENT: fatigue Nose, Mouth, and Throat: ABSENT: as per HPI, headache(s), mouth pain, sore throat, vertigo, other Breasts: ABSENT: as per HPI, other Cardiovascular: ABSENT: as per HPI, chest pain, dyspnea on exertion, edema, orthropnea, palpitations, other Respiratory: ABSENT: as per HPI, cough, dyspnea, hemoptysis, sputum, other Gastrointestinal: PRESENT: coffee ground emesis, hematemesis, vomiting Genitourinary: ABSENT: as per HPI, difficulty urinating, dysuria, hematuria, nocturia, other Musculoskeletal: ABSENT: as per HPI, back pain, deformity, joint swelling, muscle weakness, other Integumentary: ABSENT: as per HPI, diaphoresis, erythema, lesions, pruritus, ra sh, wounds, other Neurological: ABSENT: as per HPI, abnormal gait, abnormal movements, abnormal speech, confusion, convulsions, dizziness, focal weakness, frequent falls, lack of coordination, memory loss, numbness, paresthesias, restless legs, syncope, tingling, tremor(s), vertigo, weakness, other Psychiatric: ABSENT: anxiety, depression, homidical ideation, suicidal ideation Endocrine: ABSENT: cold intolerance, heat intolerance, polydipsia, polyuria Hematologic/Lymphatic: ABSENT: easy bleeding, easy bruising Physical Exam Vital Signs: Temp Pulse Resp BP Pulse Ox 99.0 F 87 16 142/77 H 100 02/26/20 19:50 02/26/20 19:50 02/26/20 19:50 02/26/20 19:50 02/26/20 19:50 Intake & Output 02/25/20 02/26/20 02/27/20 06:59 06:59 06:59 Intake Total 1035 Balance 1035 Weight 83 kg General appearance: PRESENT: no acute distress Head exam: PRESENT: normocephalic Eye exam: PRESENT: EOMI Ear exam: PRESENT: normal external ear exam Mouth exam: PRESENT: moist Neck exam: PRESENT: full ROM Respiratory exam: PRESENT: clear to auscultation julieta Cardiovascular exam: PRESENT: RRR Pulses: PRESENT: normal radial pulses, normal femoral pulses Vascular exam: PRESENT: normal capillary refill Breast: PRESENT: Normal GI/Abdominal exam: PRESENT: soft Rectal exam: PRESENT: deferred Extremities exam: PRESENT: full ROM Musculoskeletal exam: PRESENT: full ROM Neurological exam: PRESENT: alert, awake, oriented to person, oriented to place Psychiatric exam: PRESENT: appropriate affect Skin exam: PRESENT: dry Results Laboratory Results: 02/26/20 12:10 02/26/20 12:10 02/26/20 02/26/20 02/26/20 12:10 12:10 12:10 WBC 9.2 D RBC 3.81 L Hgb 13.6 Hct 39.3 MCV 103 H MCH 35.8 H MCHC 34.7 RDW 16.7 H Plt Count 244 Seg Neutrophils % 71.2 Sodium 136.9 L Potassium 4.5 Chloride 95 L Carbon Dioxide 28 Anion Gap 14 BUN 24 H Creatinine 1.55 H Est GFR ( Amer) 55 L Glucose 106 Calcium 9.8 Lipase 55.0 02/26/20 02/26/20 12:10 18:27 Troponin I 0.013 0.012 Impressions: Chest X-Ray 02/26/20 11:39 IMPRESSION: NO ACUTE RADIOGRAPHIC FINDING IN THE CHEST. Abdomen/Pelvis CTA 02/26/20 12:12 IMPRESSION: NO ABDOMINAL AORTIC ANEURYSM, DISSECTION OR SIGNIFICANT STENOSIS. NO OTHER EVIDENCE OF ACUTE INTRA-ABDOMINAL/PELVIC PROCESS. Chest/Abdomen CTA 02/26/20 12:12 IMPRESSION: 1. No evidence of pulmonary embolus. No acute aortic pathology. 2. No other evidence of acute intrathoracic process. 3. Coronary atherosclerosis. Assessment & Plan - Plan Summary Plan Summary: Patient history of EtOH use now with vomiting blood x1 this morning prior to admission. Patient does not have a history of a colonoscopy or upper endoscopy. Because of the vomiting bloody surgical consult was obtained for possible upper endoscopy. We will plan on upper endoscopy in the morning.
[2020-02-27 05:47] LABS: ABSOLUTE BASOPHILS # (AUTO) 0.1 10^3/uL (0.0-0.2); ABSOLUTE EOSINOPHILS # (AUTO) 0.1 10^3/uL (0.0-0.6); ABSOLUTE MONOCYTES (AUTO) 0.6 10^3/uL (0.1-1.4); ABSOLUTE NEUT (AUTO) 2.9 10^3/uL (1.7-8.2); BASOPHILS % (AUTO) 1.1 % (0-2); EOSINOPHILS % (AUTO) 1.4 % (0-6); HEMATOCRIT 36.5 % (37.9-51.0); HEMOGLOBIN 12.7 g/dL (13.5-17.0); MEAN CORPUSCULAR HEMOGLOBIN 35.8 pg (27.0-33.4); MEAN CORPUSCULAR HGB CONC 34.7 g/dL (32.0-36.0); MEAN CORPUSCULAR VOLUME 103 fl (80-97); MONOCYTES % (AUTO) 11.1 % (3-13); PLATELET COUNT 188 10^3/uL (150-450); RED BLOOD COUNT 3.54 10^6/uL (4.35-5.55); RED CELL DISTRIBUTION WIDTH 16.6 % (11.5-14.0); SEGMENTED NEUTROPHILS % (AUTO) 50.4 % (42-78); TOTAL CELLS COUNTED % (AUTO) 100 %; WHITE BLOOD COUNT 5.7 10^3/uL (4.0-10.5)
[2020-02-27] MEDS: NORMAL SALINE 1000 ML 1,000 ML IV PRN (06:08)
[2020-02-27 06:21] LABS: ALBUMIN 3.9 g/dL (3.5-5.0); ALKALINE PHOSPHATASE 79 U/L (38-126); ANION GAP 9 (5-19); ASPARTATE AMINO TRANSFERASE 41 U/L (17-59); BILIRUBIN,DIRECT 0.1 mg/dL (0.0-0.4); BILIRUBIN,TOTAL 1.8 mg/dL (0.2-1.3); BLOOD UREA NITROGEN 21 mg/dL (7-20); CALCIUM 8.8 mg/dL (8.4-10.2); CARBON DIOXIDE 27 mmol/L (22-30); CHLORIDE 99 mmol/L (98-107); CHOLESTEROL 197.36 mg/dL (0-200); GLUCOSE 87 mg/dL (75-110); POTASSIUM 3.6 mmol/L (3.6-5.0); TOTAL PROTEIN 6.8 g/dL (6.3-8.2); TRIGLYCERIDES 80 mg/dL (<150)
[2020-02-27 06:28] LABS: FREE T4 (FREE THYROXINE) 1.51 ng/dL (0.78-2.19)
[2020-02-27 06:32] LABS: DIRECT LDL 96 mg/dL (<100)
[2020-02-27 06:42] LABS: THYROID STIMULATING HORMONE 2.24 uIU/mL (0.47-4.68)
[2020-02-27] MEDS ORDERED: DEXTROSE 40% GEL 15 GM TUBE PO PRN ×2 (08:00)
[2020-02-27] MEDS ORDERED: DEXTROSE 50%-WATER 25 GM/50 ML DISP.SYRIN IV PRN ×2 (08:00)
[2020-02-27] MEDS ORDERED: GLUCAGON,HUMAN RECOMB 1 MG INJ SUBCUT PRN (08:00)
--- NOTE | 2020-02-27 08:10 | PDOC CONSULTATION ---
Consultation Consult Date: 02/27/20 Attending physician:: ELIZABETH ONEAL Provider Consulted: CONCEPCION PASTRANA Consult reason:: Detectable troponin History of Present Illness Admission Date/PCP: 02/26/20 15:52 History of Present Illness: RAMIRO BASHIR is a 64 year old male history of tobacco abuse, EtOH abuse, hypertension, CKD, paroxysmal atrial fibrillation diagnosed by previous counter roller in [place] who is consulted to our service for evaluation of detectable troponins. The patient presented to our emergency room complaining of nausea, vomiting, chest pain, hematemesis and hematochezia. Of note, his mid epigastric chest pain began after episodes of retching and hematemesis. He denies prior episodes of chest pain. This morning he denies cardiac complaints and only complains of back pain and feeling hungry. Physical exam on 02/27/2020: GENERAL: Pleasant and conversational. Oriented x3 with normal mood. Not in acute distress. Well groomed and well developed. HEENT: Normocephalic, atraumatic. Pupils equal. Sclerae anicteric. Oropharynx moist. NECK: No JVD. No carotid bruits. LUNGS: Clear to auscultation bilaterally. Normal respiratory effort without the use of accessory muscles or intercostal retractions. CARDIOVASCULAR: Regular rate and rhythm, normal S1 and S2 without murmurs, rubs, or gallops. PMI not displaced. ABDOMEN: No masses or tenderness to palpation. No bruit. No splenomegaly or hepatomegaly. No abdominal aorta bruit noted. EXTREMITIES: No edema, no cyanosis, no clubbing. +2 pulses femoral and pedal pulses bilaterally. SKIN: No lesions or rashes. MUSCULOSKELETAL: No chest tenderness to palpation. NEUROLOGIC: Nonfocal. No gross sensory or motor deficits bilateral upper or lower extremities. Past Medical History Cardiac Medical History: Reports: Congestive Heart Failure, Hypertension Psychiatric Medical History: Reports: Alcohol Dependency Denies: Depression Past Surgical History Past Surgical History: Reports: Orthopedic Surgery - R knee Social History Smoking Status: Current Some Day Smoker Frequency of Alcohol Use: Heavy Drugs: None Hx Prescription Drug Abuse: No Family History Family History: Reviewed & Not Pertinent Parental Family History Reviewed: Yes Children Family History Reviewed: Yes Sibling(s) Family History Reviewed.: Yes Medication/Allergy Home Medications: Metoprolol Tartrate [Lopressor 25 mg Tablet] 25 mg PO DAILY 07/08/20 Allergies/Adverse Reactions: No Known Drug Allergies Allergy (Verified 02/04/20 20:09) Physical Exam Vital Signs: Temp Pulse Resp BP Pulse Ox 98.1 F 79 18 144/74 H 100 02/26/20 23:46 02/27/20 02:00 02/26/20 23:46 02/26/20 23:46 02/26/20 23:46 Intake & Output 02/26/20 02/27/20 02/28/20 06:59 06:59 06:59 Intake Total 2260 Balance 2260 Weight 83 kg Results Laboratory Results: 02/27/20 04:48 02/27/20 04:48 02/26/20 02/26/20 02/26/20 12:10 12:10 12:10 WBC 9.2 D RBC 3.81 L Hgb 13.6 Hct 39.3 MCV 103 H MCH 35.8 H MCHC 34.7 RDW 16.7 H Plt Count 244 Seg Neutrophils % 71.2 Sodium 136.9 L Potassium 4.5 Chloride 95 L Carbon Dioxide 28 Anion Gap 14 BUN 24 H Creatinine 1.55 H Est GFR ( Amer) 55 L Glucose 106 Calcium 9.8 Magnesium Total Bilirubin AST Alkaline Phosphatase Total Protein Albumin Triglycerides Cholesterol LDL Cholesterol Direct VLDL Cholesterol HDL Cholesterol Lipase 55.0 TSH Free T4 02/27/20 02/27/20 02/27/20 04:48 04:48 04:48 WBC 5.7 RBC 3.54 L Hgb 12.7 L Hct 36.5 L MCV 103 H MCH 35.8 H MCHC 34.7 RDW 16.6 H Plt Count 188 Seg Neutrophils % 50.4 Sodium 135.1 L Potassium 3.6 Chloride 99 Carbon Dioxide 27 Anion Gap 9 BUN 21 H Creatinine 1.38 H Est GFR ( Amer) > 60 Glucose 87 Calcium 8.8 Magnesium 1.3 L Total Bilirubin 1.8 H AST 41 Alkaline Phosphatase 79 Total Protein 6.8 Albumin 3.9 Triglycerides 80 Cholesterol 197.36 LDL Cholesterol Direct 96 VLDL Cholesterol 16.0 HDL Cholesterol 88 Lipase TSH 2.24 Free T4 1.51 02/26/20 02/26/20 02/27/20 12:10 18:27 00:34 Troponin I 0.013 0.012 0.019 Impressions: Chest X-Ray 02/26/20 11:39 IMPRESSION: NO ACUTE RADIOGRAPHIC FINDING IN THE CHEST. Abdomen/Pelvis CTA 02/26/20 12:12 IMPRESSION: NO ABDOMINAL AORTIC ANEURYSM, DISSECTION OR SIGNIFICANT STENOSIS. NO OTHER EVIDENCE OF ACUTE INTRA-ABDOMINAL/PELVIC PROCESS. Chest/Abdomen CTA 02/26/20 12:12 IMPRESSION: 1. No evidence of pulmonary embolus. No acute aortic pathology. 2. No other evidence of acute intrathoracic process. 3. Coronary atherosclerosis. 02/27/20 04:48 02/27/20 04:48 MCV 103 fl (80-97) H 02/27/20 04:48 MCH 35.8 pg (27.0-33.4) H 02/27/20 04:48 MCHC 34.7 g/dL (32.0-36.0) 02/27/20 04:48 RDW 16.6 % (11.5-14.0) H 02/27/20 04:48 Seg Neutrophils % 50.4 % (42-78) 02/27/20 04:48 Chloride 99 mmol/L (98-107) 02/27/20 04:48 Carbon Dioxide 27 mmol/L (22-30) 02/27/20 04:48 Anion Gap 9 (5-19) 02/27/20 04:48 Est GFR ( Amer) > 60 (>60) 02/27/20 04:48 Glucose 87 mg/dL (75-110) 02/27/20 04:48 Calcium 8.8 mg/dL (8.4-10.2) 02/27/20 04:48 Magnesium 1.3 mg/dL (1.6-2.3) L 02/27/20 04:48 Total Bilirubin 1.8 mg/dL (0.2-1.3) H 02/27/20 04:48 AST 41 U/L (17-59) 02/27/20 04:48 Alkaline Phosphatase 79 U/L (38-126) 02/27/20 04:48 Total Protein 6.8 g/dL (6.3-8.2) 02/27/20 04:48 Albumin 3.9 g/dL (3.5-5.0) 02/27/20 04:48 Triglycerides 80 mg/dL (<150) 02/27/20 04:48 Cholesterol 197.36 mg/dL (0-200) 02/27/20 04:48 LDL Cholesterol Direct 96 mg/dL (<100) 02/27/20 04:48 VLDL Cholesterol 16.0 mg/dL (10-31) 02/27/20 04:48 HDL Cholesterol 88 mg/dL (>40) 02/27/20 04:48 Lipase 55.0 U/L (23-300) 02/26/20 12:10 TSH 2.24 uIU/mL (0.47-4.68) 02/27/20 04:48 Free T4 1.51 ng/dL (0.78-2.19) 02/27/20 04:48 02/26/20 02/26/20 02/27/20 12:10 18:27 00:34 Troponin I 0.013 0.012 0.019 Current Medication List Generic Name Dose Route Start Last Admin Trade Name Freq PRN Reason Stop Dose Admin Acetaminophen 325 mg 02/26/20 15:52 Tylenol 325 Mg Tablet PO 03/27/20 15:51 Q4HP PRN FEVER >101 Albuterol/Ipratropium 3 ml 02/26/20 15:52 Duoneb 3 Ml Ampul NEB 03/27/20 15:51 RTQ6HP PRN SHORTNESS OF BREATH Amlodipine Besylate 5 mg 02/26/20 16:15 02/26/20 17:04 Norvasc 5 Mg Tablet PO 03/27/20 16:14 5 mg DAILY ALEX Administration Aspirin 81 mg 02/27/20 10:00 Aspirin 81 Mg Chewable Tablet PO 03/28/20 09:59 DAILY ALEX Atorvastatin Calcium 40 mg 02/26/20 22:00 02/26/20 21:33 Lipitor 40 Mg Tablet PO 03/27/20 21:59 40 mg QHS ALEX Administration Dextrose 12.5 gm 02/27/20 08:00 Dextrose Inj 50% Syringe (25 Gm/50 Ml) IV 03/28/20 07:59 PRN PRN FOR BG 50-69 IN ALERT PATIENT Protocol Dextrose 25 gm 02/27/20 08:00 Dextrose Inj 50% Syringe (25 Gm/50 Ml) IV 03/28/20 07:59 PRN PRN See Label Comments Protocol Glucagon 1 mg 02/27/20 08:00 Glucagen Inj 1 Mg Vial SUBCUT 03/28/20 07:59 PRN PRN Evaluate for BG < 70 Protocol Glucose 15 gm 07/09/20 08:00 Glutose 40% Gel 15 Gm Tube PO 03/28/20 07:59 PRN PRN For BG 50-69 in Alert Patient Protocol Glucose 30 gm 02/27/20 08:00 Glutose 40% Gel 15 Gm Tube PO 03/28/20 07:59 PRN PRN FOR BG < 50 IN ALERT PATIENT Protocol Hydralazine HCl 10 mg 02/26/20 16:00 02/26/20 17:58 Apresoline Inj/Pf 20 Mg/1 Ml Sdv IV 03/27/20 15:59 10 mg Q3HP PRN Administration Give For Sbp > [150] Sodium Chloride 1,000 mls @ 80 mls/hr 02/26/20 15:52 02/27/20 06:08 Nacl 0.9% 1000 Ml Iv Soln IV 03/27/20 15:51 80 mls/hr CONTINUOUS PRN Administration THIS MED IS NOT "PRN" Lisinopril 20 mg 02/26/20 20:00 02/26/20 21:33 Prinivil 10 Mg Tablet PO 03/27/20 19:59 20 mg DAILY ALEX Administration Magnesium Hydroxide 30 ml 02/26/20 15:52 Milk Of Magnesia 30 Ml Udcup PO 03/27/20 15:51 HSP PRN FOR CONSTIPATION Metoprolol Tartrate 2.5 mg 02/26/20 16:00 Lopressor Inj/Pf 5 Mg/5 Ml Sdv IV 03/27/20 15:59 Q6HP PRN Give For Hr > [150] Ondansetron HCl 4 mg 02/26/20 15:52 Zofran Inj/Pf 4 Mg/2 Ml Sdv IV 03/27/20 15:51 Q4HP PRN FOR NAUSEA/VOMITING Oxycodone/Acetaminophen 1 tab 02/26/20 15:52 Percocet 5-325 Mg Tablet PO 03/04/20 15:51 Q4HP PRN FOR PAIN SCALE 3-5 Pantoprazole Sodium 40 mg 02/26/20 22:00 02/26/20 21:33 Protonix Iv Inj 40 Mg Vial IV 03/04/20 21:59 40 mg Q12 ALEX Administration Promethazine HCl 12.5 mg 02/26/20 15:52 02/26/20 17:59 Phenergan Inj 25 Mg/1 Ml Vial IV 03/27/20 15:51 12.5 mg Q4HP PRN Administration FOR UNRESOLVED NAUSEA/VOMITING Temazepam 7.5 mg 02/26/20 15:52 02/26/20 23:55 Restoril 7.5 Mg Capsule PO 03/04/20 15:51 7.5 mg HSP PRN Administration SLEEP OR INSOMNIA Discontinued Medications Generic Name Dose Route Start Last Admin Trade Name Freq PRN Reason Stop Dose Admin Aspirin 325 mg 02/26/20 14:39 02/26/20 15:28 Aspirin 325 Mg Tablet PO 02/26/20 14:40 325 mg NOW ONE Administration Carvedilol 25 mg 02/26/20 20:00 Coreg 12.5 Mg Tablet PO 03/27/20 19:59 Q12 ALEX Fentanyl Citrate 50 mcg 02/26/20 12:11 02/26/20 12:25 Sublimaze Inj/Pf 100 Mcg/2 Ml Ampule IV 02/26/20 12:12 50 mcg NOW ONE Administration Sodium Chloride 1,000 mls @ 0 mls/hr 02/26/20 13:25 02/26/20 16:43 Nacl 0.9% 1000 Ml Iv Soln IV 02/26/20 13:26 Infused BOLUS ONE Infusion Wide Open Ondansetron HCl 4 mg 02/26/20 12:11 02/26/20 12:26 Zofran Inj/Pf 4 Mg/2 Ml Sdv IV 02/26/20 12:12 4 mg NOW ONE Administration Assessment & Plan - Diagnosis (1) Detectable troponin Is this a current diagnosis for this admission?: Yes Plan: Although the patient has multiple cardiac risk factors for coronary artery disease, his presentation is not consistent with an acute coronary syndrome and, as a matter fact, he denies cardiovascular symptoms today. His chest pain is likely secondary to his GI issue and his troponins, although detectable, are in the indeterminate range. His EKG on presentation demonstrated normal sinus rhythm without any acute ischemic changes. Recommendations: -Proceed with recommended GI work-up. -No further cardiac ischemic work-up indicated at this point. -The patient may undergo nuclear stress testing as an outpatient for general risk stratification. -Cardiology will sign off the case for now, please reconsult if deemed necessary. (2) Paroxysmal atrial fibrillation Plan: The patient was diagnosed with atrial fibrillation several years ago by a counter roller in [place]. He is currently in normal sinus rhythm and denies recurrence of symptoms consistent with A. fib. His telemetry shows normal sinus rhythm. His chads 2 vascular score is 1 therefore full anticoagulation with either vitamin K antagonist or NOAC is optional at this point. This issue should be readdressed by the hospitalist team once the patient had undergone his GI work-up.
[2020-02-27] MEDS: LISINOPRIL 10 MG TABLET PO SCH (09:30)
[2020-02-27] MEDS: AMLODIPINE BESYLATE 5 MG TABLET PO SCH (09:30)
[2020-02-27] MEDS: PANTOPRAZOLE SODIUM 40 MG VIAL IV SCH (09:51)
[2020-02-27] MEDS ORDERED: ASPIRIN 81 MG TABLET, CHEWABLE PO SCH (10:00)
--- NOTE | 2020-02-27 10:13 | PDOC PROGRESS REPORT ---
Subjective Progress Note for:: 02/27/20 Subjective:: Abdominal pain is markedly improved. Still feels constipated. Had nausea and vomiting yesterday with solid food intake but feels better today and is very hungry. Did not have any hematemesis with his nausea and vomiting yesterday. Patient does note some bowel habit changes in the last several months with constipation. Patient denies any prior history of colonoscopies. Reason For Visit: CHEST PAIN,HEMOPTYSIS,HEMATOCHEZIA Physical Exam Vital Signs: Temp Pulse Resp BP Pulse Ox 97.9 F 74 16 126/62 H 99 02/27/20 07:48 02/27/20 07:48 02/27/20 07:48 02/27/20 07:48 02/27/20 07:48 Intake & Output 02/26/20 02/27/20 02/28/20 06:59 06:59 06:59 Intake Total 2260 Balance 2260 Weight 83 kg General appearance: PRESENT: no acute distress, cooperative Respiratory exam: PRESENT: clear to auscultation [email or web address] Cardiovascular exam: PRESENT: RRR GI/Abdominal exam: PRESENT: other - Soft, somewhat protuberant, active bowel sounds, mild epigastric abdominal tenderness without peritoneal signs. Results Laboratory Results: 02/27/20 04:48 02/27/20 04:48 02/26/20 02/26/20 02/26/20 12:10 12:10 12:10 WBC 9.2 D RBC 3.81 L Hgb 13.6 Hct 39.3 MCV 103 H MCH 35.8 H MCHC 34.7 RDW 16.7 H Plt Count 244 Seg Neutrophils % 71.2 Sodium 136.9 L Potassium 4.5 Chloride 95 L Carbon Dioxide 28 Anion Gap 14 BUN 24 H Creatinine 1.55 H Est GFR ( Amer) 55 L Glucose 106 Calcium 9.8 Magnesium Total Bilirubin AST Alkaline Phosphatase Total Protein Albumin Triglycerides Cholesterol LDL Cholesterol Direct VLDL Cholesterol HDL Cholesterol Lipase 55.0 TSH Free T4 02/27/20 02/27/20 02/27/20 04:48 04:48 04:48 WBC 5.7 RBC 3.54 L Hgb 12.7 L Hct 36.5 L MCV 103 H MCH 35.8 H MCHC 34.7 RDW 16.6 H Plt Count 188 Seg Neutrophils % 50.4 Sodium 135.1 L Potassium 3.6 Chloride 99 Carbon Dioxide 27 Anion Gap 9 BUN 21 H Creatinine 1.38 H Est GFR ( Amer) > 60 Glucose 87 Calcium 8.8 Magnesium 1.3 L Total Bilirubin 1.8 H AST 41 Alkaline Phosphatase 79 Total Protein 6.8 Albumin 3.9 Triglycerides 80 Cholesterol 197.36 LDL Cholesterol Direct 96 VLDL Cholesterol 16.0 HDL Cholesterol 88 Lipase TSH 2.24 Free T4 1.51 02/26/20 02/26/20 02/27/20 12:10 18:27 00:34 Troponin I 0.013 0.012 0.019 Impressions: Chest X-Ray 02/26/20 11:39 IMPRESSION: NO ACUTE RADIOGRAPHIC FINDING IN THE CHEST. Abdomen/Pelvis CTA 02/26/20 12:12 IMPRESSION: NO ABDOMINAL AORTIC ANEURYSM, DISSECTION OR SIGNIFICANT STENOSIS. NO OTHER EVIDENCE OF ACUTE INTRA-ABDOMINAL/PELVIC PROCESS. Chest/Abdomen CTA 02/26/20 12:12 IMPRESSION: 1. No evidence of pulmonary embolus. No acute aortic pathology. 2. No other evidence of acute intrathoracic process. 3. Coronary atherosclerosis. Assessment & Plan - Diagnosis (1) Hematemesis Qualifiers: Nausea presence: with nausea Qualified Code(s): K92.0 - Hematemesis Plan: His abdominal CT scan was unremarkable with no evidence of obstruction nor significant intra-abdominal pathology. His lipase was normal. In light of his history of hematemesis couple of days ago, will proceed with upper endoscopy. I have discussed with the patient the risk and benefits of the procedure including risk of intestinal injury, bleeding, aspiration. Patient understands and agrees to proceed. (2) Constipation Is this a current diagnosis for this admission?: Yes Plan: Patient with bowel habit changes with no prior colonoscopies. I have highly encouraged the patient to undergo a colonoscopy but he refuses at this time but will reconsider. I have had a long discussion with the patient concerning the clear-cut indication for colonoscopy with his bowel habit changes with concerns for possibility of a colon cancer presenting in this manner. He fully understands the rationale for colonoscopy and the importance of it. This procedure can be done as an outpatient. Recommend referral to gastroenterology as an outpatient for this procedure.
[2020-02-27] MEDS ORDERED: PROPOFOL INJ 200 MG/20 ML VIAL IV ONE (10:36)
[2020-02-27] MEDS ORDERED: MAGNESIUM SULFATE/D5W 1 GM/100 ML RTUPB IV ONE (13:21)
[2020-02-27 13:24] VITALS: BP 141/60
--- NOTE | 2020-02-27 13:37 | Operative Report ---
Operative Report DATE OF SURGERY: 02/27/20 PREOPERATIVE DIAGNOSIS: Hematemesis. POSTOPERATIVE DIAGNOSIS: Gastroduodenitis, hiatal hernia. OPERATION: Esophagogastroduodenoscopy with gastric biopsies. SURGEON: ULI ELLISON ANESTHESIA: LMAC TISSUE REMOVED OR ALTERED: Antral biopsy COMPLICATIONS: None ESTIMATED BLOOD LOSS: Minimal INTRAOPERATIVE FINDINGS: Moderate sized hiatal hernia. Mild gastric erythema, superficial duodenal erosions. PROCEDURE: Informed consent was obtained. Patient was brought to the endoscopy suite. Procedure was done under LMAC. After IV sedation with propofol, endoscope was passed via the patient's mouth and fed to the second portion of the duodenum. There was some scattered superficial erosions of the duodenum but no ulcerations and no masses. The gastric mucosa. Mildly erythematous but no ulcerations and no masses were noted. Retroflexed view demonstrated a moderate size hiatal hernia. No esophageal ulcerations nor masses were noted. Antral biopsies were taken for H. pylori. Patient tolerated procedure well with no apparent complications. Patient with evidence of gastroduodenitis that appears mild. No evidence of esophageal varices nor ulcers. May feed the patient and if tolerated may be discharged home on proton pump inhibitor with follow-up at [facility] in 1 to 2 weeks for biopsy results. I did have a talk with the patient concerning the need for a colonoscopy as an outpatient. Recommend referral to gastroenterology for colonoscopy.
--- NOTE | 2020-02-27 13:49 | PDOC PROGRESS REPORT ---
Subjective Progress Note for:: 02/27/20 Reason For Visit: CHEST PAIN,HEMATEMESIS, AND HEMATOCHEZIAE Physical Exam Vital Signs: Temp Pulse Resp BP Pulse Ox 98.1 F 83 16 141/60 H 100 02/27/20 13:23 02/27/20 13:23 02/27/20 13:23 02/27/20 13:23 02/27/20 13:23 Intake & Output 02/26/20 02/27/20 02/28/20 06:59 06:59 06:59 Intake Total 2260 300 Balance 2260 300 Weight 83 kg Results Laboratory Results: 02/27/20 04:48 02/27/20 04:48 02/27/20 02/27/20 02/27/20 04:48 04:48 04:48 WBC 5.7 RBC 3.54 L Hgb 12.7 L Hct 36.5 L MCV 103 H MCH 35.8 H MCHC 34.7 RDW 16.6 H Plt Count 188 Seg Neutrophils % 50.4 Sodium 135.1 L Potassium 3.6 Chloride 99 Carbon Dioxide 27 Anion Gap 9 BUN 21 H Creatinine 1.38 H Est GFR ( Amer) > 60 Glucose 87 Calcium 8.8 Magnesium 1.3 L Total Bilirubin 1.8 H AST 41 Alkaline Phosphatase 79 Total Protein 6.8 Albumin 3.9 Triglycerides 80 Cholesterol 197.36 LDL Cholesterol Direct 96 VLDL Cholesterol 16.0 HDL Cholesterol 88 TSH 2.24 Free T4 1.51 02/26/20 02/26/20 02/27/20 12:10 18:27 00:34 Troponin I 0.013 0.012 0.019 Impressions: Chest X-Ray 02/26/20 11:39 IMPRESSION: NO ACUTE RADIOGRAPHIC FINDING IN THE CHEST. Abdomen/Pelvis CTA 02/26/20 12:12 IMPRESSION: NO ABDOMINAL AORTIC ANEURYSM, DISSECTION OR SIGNIFICANT STENOSIS. NO OTHER EVIDENCE OF ACUTE INTRA-ABDOMINAL/PELVIC PROCESS. Chest/Abdomen CTA 02/26/20 12:12 IMPRESSION: 1. No evidence of pulmonary embolus. No acute aortic pathology. 2. No other evidence of acute intrathoracic process. 3. Coronary atherosclerosis. Assessment & Plan - Diagnosis (1) Hematemesis Qualifiers: Nausea presence: with nausea Qualified Code(s): K92.0 - Hematemesis Is this a current diagnosis for this admission?: Yes (2) Constipation Is this a current diagnosis for this admission?: Yes (3) Hiatal hernia Is this a current diagnosis for this admission?: Yes Plan: I had a discussion with the patient concerning the endoscopic findings. His mild gastro duodenitis and his hiatal hernia. I have had a discussion with the patient concerning lifestyle changes to manage these problems and the importance of follow-up at [facility] for his biopsy results. I have also explained to him again the importance of a colonoscopy as an outpatient. I have asked hospitalist to make an outpatient referral to gastroenterology for colonoscopy.
--- NOTE | 2020-03-02 13:58 | Left Against Medical Advice ---
Against Medical Advice Admission Date/Time: 02/26/20 15:29 Primary Care Provider: Date of Patient Emigration: 02/27/20 - Diagnosis: (1) Chest pain Is this a current diagnosis for this admission?: Yes (2) Hypertensive urgency Is this a current diagnosis for this admission?: Yes (3) Tobacco abuse Is this a current diagnosis for this admission?: Yes (4) History of ETOH abuse Is this a current diagnosis for this admission?: Yes (5) Hematemesis Is this a current diagnosis for this admission?: Yes (6) Hematochezia Is this a current diagnosis for this admission?: Yes - Summary: Summary: RAMIRO BASHIR is a 64 year old male past medical history of tobacco abuse, EtOH abuse, hypertension, CKD, atrial fibrillation, who is here in [facility] from [facility] for work, patient presented to nausea, vomiting, chest pain, hematemesis and hematochezia. This morning patient woke up very nauseous, which was followed by retching and one episode of hematemesis, this was followed with midepigastric chest pain which was constant about 2 hours, felt like pressure, 5 out of 10 on severity scale, no alleviating or exacerbating factor was identified, nonradiating, sweating and subjective fever. Patient also mentions that this morning when he used restroom he noted blood work mixed with his stool. Patient denies any previous history of hematemesis, cirrhosis, endorses history of GERD, denies any history of CAD, had a stress test 10 years ago which was reported as normal, family history is positive for CAD on both mother and father side. In ED a CTA chest, CT abdomen pelvis was unremarkable, was also noted to to be hypertensive, with mildly elevated troponin, and no acute EKG changes. Hospitalist was consulted for admission. Admitted to telemetry, was a started on antiplatelets, statins and sublingual nitroglycerin, cardiology was consulted however his chest pain was deemed to be noncardiac and attributed to his hypertensive emergency demand mismatch due to his anemia, forceful vomiting, hematemesis and hematochezia. Surgery was consulted and patient was placed n.p.o. and underwent upper GI endoscopy but adamantly refused to have a colonoscopy. Upper GI endoscopy was positive for mild gastroduodenitis, no variceal bleeding or any active bleeding, and recommendation was to advance diet as tolerated and discharge patient on PPIs to follow-up as outpatient with GI for colonoscopy. Unfortunately patient very anxious and wanted to leave right away. Patient was advised to wait until his diet is resumed and to make sure to see if is p.o. tolerant give him a prescription for PPIs and and make sure that we get a GI appointment for him to get outpatient but unfortunately he still chose to leave AMA. Patient was advised to follow-up as outpatient with gastroenterology for colonoscopy as he had never had one and he had presented with hematochezia.
== END 2020-02-27 15:04 | disposition left against medical advice (07) ==
LOC: ER 11:27 → EH 15:29 → OBSVTOIN 15:52 → INTOOBSV 15:52 → 4N 17:51
PROVIDERS: ADMIT Internal Medicine; ATTEND Internal Medicine
DX: R07.89 Other chest pain (principal); I16.0 Hypertensive urgency; K29.91 Gastroduodenitis, unspecified, with bleeding; K44.9 Diaphragmatic hernia without obstruction or gangrene; K31.9 Disease of stomach and duodenum, unspecified; K26.4 Chronic or unspecified duodenal ulcer with hemorrhage; K59.00 Constipation, unspecified; I48.0 Paroxysmal atrial fibrillation; R79.89 Other specified abnormal findings of blood chemistry; I13.0 Hypertensive heart and chronic kidney disease with heart failure and stage 1 through stage 4 chronic kidney disease, or unspecified chronic kidney disease; I50.9 Heart failure, unspecified; N18.9 Chronic kidney disease, unspecified; D64.9 Anemia, unspecified; M54.9 Dorsalgia, unspecified; F10.11 Alcohol abuse, in remission; F17.200 Nicotine dependence, unspecified, uncomplicated; Z03.818 Encounter for observation for suspected exposure to other biological agents ruled out; Z82.49 Family history of ischemic heart disease and other diseases of the circulatory system; Z91.14 Patient's other noncompliance with medication regimen; Z87.19 Personal history of other diseases of the digestive system
CPT/HCPCS: 93005; 99285; 96361; 96374; 96375; 43239; 36415 ×2; 84439; 82962; 83690; 83735; 84443; 85025 ×2; 87635; 80048; 80053; 84484 ×2; 83036; 80061; 88342 ×2; 88305 ×2; 71045; 71275; 74174; 93010; 00731; G0378; J3010; J0360; C9113 ×2; J2550; J2405; J7030 ×2; J2704; J3490; C9803; 731

== ENCOUNTER 2020-03-13 07:05 | Inpatient (IN) | payer OTHER ==
[2020-03-13] MEDS ORDERED: NORMAL SALINE 1000 ML 1,000 ML IV ONE ×2 (08:46→10:53)
[2020-03-13] MEDS ORDERED: ONDANSETRON HCL INJ/PF 4 MG/2 ML SDV IV ONE (08:46)
--- NOTE | 2020-03-13 08:50 | ER Document Report ---
ED General - General Chief Complaint: Nausea/Vomiting Stated Complaint: MEDICATION REACTION/BLOOD PRESSURE Notes: Patient is a 64-year-old -[place] male with a history of hypertension who presents the emergency department with a chief complaint of nausea and vo miting for the past 2 days. Patient reports that he recently traveled here from [place] where he resides. He states over the past 2 days he is developed a gradual onset of some nausea and vomiting. He states he cannot seem to get a handle on it. He states he feels it may be related to his antihypertensive medications. He states he is been on these medications for a very long time and had no recent changes to meds or doses. He denies any known sick contacts recently. States he is also having some generalized abdominal discomfort that he attributes to be secondary to the vomiting. He denies any chest pain or shortness of breath. Denies any lower extremity pain or swelling. He does repo rt that has not had a bowel movement in a few days and that he is normally very regular. He denies any known fevers, chills or night sweats. TRAVEL OUTSIDE OF THE [place] IN LAST 30 DAYS: No - Related Data Allergies/Adverse Reactions: No Known Drug Allergies Allergy (Verified 03/13/20 07:21) Home Medications: metoprolol, lasix, felcinide. Past Medical History - Social History Smoking Status: Current Every Day Smoker Chew tobacco use (# tins/day): No Frequency of alcohol use: Daily Drug Abuse: None Family History: Reviewed & Not Pertinent Patient has homicidal ideation: No - Past Medical History Cardiac Medical History: Reports: Hx Congestive Heart Failure, Hx Hypertension Psychiatric Medical History: Denies: Hx Depression Past Surgical History: Reports: Hx Orthopedic Surgery - R knee Review of Systems - Review of Systems Constitutional: denies: Fever EENT: denies: Throat pain Cardiovascular: denies: Chest pain Respiratory: denies: Short of breath Gastrointestinal: Abdominal pain, Nausea, Vomiting, Constipation. denies: Diarrhea Genitourinary: denies: Dysuria Musculoskeletal: denies: Muscle pain Skin: denies: Change in color Hematologic/Lymphatic: denies: Easy bleeding Neurological/Psychological: Weakness Physical Exam - Vital signs Vitals: Temp Pulse Resp BP Pulse Ox 98.1 F 92 16 183/100 H 100 03/13/20 07:12 03/13/20 07:12 03/13/20 07:12 03/13/20 07:12 03/13/20 07:12 - General General appearance: Alert In distress: None - HEENT Head: Normocephalic, Atraumatic Eyes: Normal Conjunctiva: Normal Extraocular movements intact: Yes Mucous membranes: Normal, Moist Pharynx: Normal Neck: Supple - Respiratory Respiratory status: No respiratory distress Chest status: Nontender Breath sounds: Normal Chest palpation: Normal - Cardiovascular Rhythm: Regular Heart sounds: Normal auscultation - Abdominal Inspection: Normal Distension: No distension Bowel sounds: Normal Tenderness: Tender - Diffuse tenderness to light palpation, patient resists exam. Guarding Organomegaly: No organomegaly - Extremities General upper extremity: Normal inspection, Nontender, Normal color, Normal ROM, Normal temperature General lower extremity: Normal inspection, Nontender, Normal color, Normal ROM, Normal temperature, Normal weight bearing. No: Naga's sign - Neurological Neuro grossly intact: Yes Cognition: Normal Orientation: AAOx4 Ameena Coma Scale Eye Opening: Spontaneous [place] Coma Scale Verbal: Oriented Ameena Coma Scale Motor: Obeys Commands Ameena Coma Scale Total: 15 Speech: Normal - Psychological Associated symptoms: Agitated - Skin Skin Temperature: Warm Skin Moisture: Dry Skin Color: Normal, Other - Normal turgor Course - Re-evaluation Re-evalutation: 03/13/20 10:02 EK:57 AM. Sinus rhythm at 93 bpm. Normal intervals. No STEMI. Largely unchanged from prior EKG dated 02/26/2020. Interpreted by ED attending. 03/13/20 13:42 Patient with elevated serum alcohol and acute increasing creatinine. Consistent with acute kidney injury. After 2 L saline bolus patient still feeling ill, not tolerating p.o. Plan will be for admission. Spoke with Dr. Trinidad who will admit the patient to the medicine service for further care. - Vital Signs Vital signs: Temp Pulse Resp BP Pulse Ox 98.1 F 92 24 H 137/104 H 100 03/13/20 07:12 03/13/20 07:12 03/13/20 11:01 03/13/20 11:01 03/13/20 11:01 - Laboratory Result Diagrams: 03/13/20 09:28 03/13/20 09:28 Laboratory results interpreted by me: 07/24/20 07/24/20 07/24/20 09:28 09:28 12:52 RBC 3.88 L MCV 106 H MCH 35.6 H RDW 15.8 H Chloride 92 L Carbon Dioxide 17 L Anion Gap 31 H BUN 30 H Creatinine 2.02 H Est GFR ( Amer) 41 L Est GFR (MDRD) Non-Af 34 L Creatine Kinase 217 H Total Protein 8.8 H Albumin 5.4 H Urine Protein 100 H Urine Ketones 20 H Urine Blood MODERATE H Discharge - Discharge Clinical Impression: VIDAL (acute kidney injury) Condition: Stable Disposition: ADMITTED INPATIENT Admitting Provider: Vivi (Hospitalist) Unit Admitted: Medical Floor
[2020-03-13] MEDS ORDERED: LORAZEPAM INJ 2 MG/1 ML VIAL IM ONE (09:07)
[2020-03-13 09:48] LABS: ABSOLUTE BASOPHILS # (AUTO) 0.1 10^3/uL (0.0-0.2); ABSOLUTE LYMPHOCYTES (AUTO) 1.5 10^3/uL (0.5-4.7); ABSOLUTE MONOCYTES (AUTO) 0.2 10^3/uL (0.1-1.4); ABSOLUTE NEUT (AUTO) 4.2 10^3/uL (1.7-8.2); BASOPHILS % (AUTO) 1.7 % (0-2); EOSINOPHILS % (AUTO) 0.2 % (0-6); HEMOGLOBIN 13.8 g/dL (13.5-17.0); LYMPHOCYTES % (AUTO) 24.7 % (13-45); MEAN CORPUSCULAR HEMOGLOBIN 35.6 pg (27.0-33.4); MEAN CORPUSCULAR HGB CONC 33.6 g/dL (32.0-36.0); MEAN CORPUSCULAR VOLUME 106 fl (80-97); MONOCYTES % (AUTO) 3.6 % (3-13); PLATELET COUNT 318 10^3/uL (150-450); RED BLOOD COUNT 3.88 10^6/uL (4.35-5.55); RED CELL DISTRIBUTION WIDTH 15.8 % (11.5-14.0); SEGMENTED NEUTROPHILS % (AUTO) 69.8 % (42-78); TOTAL CELLS COUNTED % (AUTO) 100 %
--- NOTE | 2020-03-13 10:02 | RADIOLOGY REPORT (SQ) ---
EXAM DESCRIPTION: ACUTE ABDOMEN SERIES IMAGES COMPLETED DATE/TIME: 03/13/2020 9:51 am REASON FOR STUDY: abd pain n/v COMPARISON: None. NUMBER OF VIEWS: Three views. TECHNIQUE: Frontal chest, supine abdomen and upright/decubitus abdomen radiographic images acquired. LIMITATIONS: None. FINDINGS: CHEST: Lungs clear of infiltrates. FREE AIR: None. No abnormal gas collections. BOWEL GAS PATTERN: Nonobstructive pattern. No dilated loops or air fluid levels. CALCIFICATIONS: No suspicious calcifications. HARDWARE: None in the abdomen. SOFT TISSUES: No gross mass or suggestion of organomegaly. BONES: No acute fracture. No worrisome bone lesions. OTHER: No other significant finding. IMPRESSION: NO RADIOGRAPHIC EVIDENCE FOR ACUTE ABDOMINAL DISEASE. TECHNICAL DOCUMENTATION: JOB ID: [id number] 2010 [employer]- All Rights Reserved Reading location - IP/workstation name: [email or web address]
[2020-03-13 10:09] LABS: ALBUMIN 5.4 g/dL (3.5-5.0); ALCOHOL 136 mg/dL (NONE DETECTED); ALKALINE PHOSPHATASE 99 U/L (38-126); ASPARTATE AMINO TRANSFERASE 48 U/L (17-59); BILIRUBIN,DIRECT 0.2 mg/dL (0.0-0.4); BILIRUBIN,TOTAL 1.1 mg/dL (0.2-1.3); BLOOD UREA NITROGEN 30 mg/dL (7-20); CALCIUM 9.8 mg/dL (8.4-10.2); CREATINE KINASE 217 U/L (55-170); GLUCOSE 102 mg/dL (75-110); PHOSPHORUS 4.2 mg/dL (2.5-4.5); POTASSIUM 4.5 mmol/L (3.6-5.0); TOTAL PROTEIN 8.8 g/dL (6.3-8.2)
[2020-03-13 10:14] LABS: CARBON DIOXIDE 17 mmol/L (22-30); CHLORIDE 92 mmol/L (98-107)
[2020-03-13 10:24] LABS: ANION GAP 31 (5-19)
[2020-03-13 13:13] LABS: APPEARANCE,URINE CLEAR; BILIRUBIN,URINE NEGATIVE (NEGATIVE); COLOR,URINE YELLOW; GLUCOSE, URINE NEGATIVE (NEGATIVE); KETONES,URINE 20 mg/dL (NEGATIVE); PROTEIN,URINE 100 mg/dL (NEGATIVE); URINE SPECIFIC GRAVITY 1.019; UROBILINOGEN,URINE NEGATIVE mg/dL (<2.0)
[2020-03-13 13:27] LABS: URINE AMPHETAMINES SCREEN NEGATIVE; URINE BARBITURATES SCREEN NEGATIVE; URINE BENZODIAZEPINES SCREEN NEGATIVE; URINE COCAINE SCREEN NEGATIVE; URINE MARIJUANA (THC) SCREEN NEGATIVE; URINE METHADONE SCREEN NEGATIVE; URINE PHENCYCLIDINE SCREEN NEGATIVE
[2020-03-13] MEDS ORDERED: PROMETHAZINE HCL INJ 25 MG/1 ML VIAL IV ONE (13:38)
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
[2020-03-13] MEDS ORDERED: MAG HYDROX/AL HYDROX/SIMETH SUSP 30 ML UDCUP PO PRN (15:53)
[2020-03-13] MEDS ORDERED: DEXTROSE 50%-WATER 25 GM/50 ML DISP.SYRIN IV PRN ×2 (15:53)
[2020-03-13] MEDS ORDERED: GLUCAGON,HUMAN RECOMB 1 MG INJ SUBCUT PRN (15:53)
[2020-03-13] MEDS ORDERED: PROMETHAZINE HCL INJ 25 MG/1 ML VIAL IV PRN (15:53)
[2020-03-13] MEDS ORDERED: ACETAMINOPHEN 650 MG SUPP.RECT PR PRN (15:53)
[2020-03-13] MEDS ORDERED: ACETAMINOPHEN 325 MG TABLET PO PRN (15:53)
[2020-03-13] MEDS ORDERED: DEXTROSE 40% GEL 15 GM TUBE PO PRN ×2 (15:53)
[2020-03-13] MEDS ORDERED: MORPHINE SULFATE 10 MG/ML INJ IV PRN (16:08)
[2020-03-13] MEDS: METOPROLOL TARTRATE 25 MG TABLET PO SCH (17:01)
[2020-03-13] MEDS: NORMAL SALINE 1000 ML 1,000 ML IV PRN ×2 (17:02→23:00)
[2020-03-13 17:33] LABS: ALBUMIN 4.3 g/dL (3.5-5.0); ANION GAP 15 (5-19); BLOOD UREA NITROGEN 29 mg/dL (7-20); CALCIUM 8.7 mg/dL (8.4-10.2); CARBON DIOXIDE 22 mmol/L (22-30); CHLORIDE 100 mmol/L (98-107); GLUCOSE 98 mg/dL (75-110); PHOSPHORUS 2.9 mg/dL (2.5-4.5); POTASSIUM 4.7 mmol/L (3.6-5.0); SALICYLATE < 1.0 mg/dL (2.0-20.0)
[2020-03-13 18:00] LABS: ARTERIAL BLOOD BASE EXCESS -0.1 mmol/L; ARTERIAL BLOOD FIO2 ROOM AIR; ARTERIAL BLOOD H2CO3 1.02 mmol/L (1.05-1.35); ARTERIAL BLOOD HCO3 23.3 mmol/L (20-24); ARTERIAL BLOOD O2 SATURATION 96.6 % (94-98); ARTERIAL BLOOD PCO2 33.9 mmHg (35-45); ARTERIAL BLOOD PH 7.46 (7.35-7.45); ARTERIAL BLOOD PO2 81.3 mmHg (80-100); ARTERIAL BLOOD TOTAL CO2 24.3 mmol/L (23-27)
[2020-03-13] MEDS: FLECAINIDE ACETATE 100 MG TABLET PO SCH (18:19)
[2020-03-13] MEDS ORDERED: NICOTINE 7 MG/24 HR PATCH.TD24 TD PRN (19:40)
[2020-03-13 21:09] LABS: ANION GAP 7 (5-19); BLOOD UREA NITROGEN 29 mg/dL (7-20); CALCIUM 8.8 mg/dL (8.4-10.2); CARBON DIOXIDE 29 mmol/L (22-30); CHLORIDE 99 mmol/L (98-107); GLUCOSE 149 mg/dL (75-110); POTASSIUM 4.1 mmol/L (3.6-5.0)
[2020-03-13] MEDS: HEPARIN SOD (PORCINE) 5,000 UNIT/ML 1 ML VIAL SUBCUT SCH (21:09)
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
[2020-03-13] MEDS: DIAZEPAM INJ 10 MG/2 ML DISP.SYRIN IV PRN (22:21)
--- NOTE | 2020-03-13 23:37 | RADIOLOGY REPORT (SQ) ---
CT ABDOMEN AND PELVIS WITHOUT INTRAVENOUS CONTRAST: 03/13/2020 10:33 PM CDT HISTORY: 54-year old with pancreatitis, concern for alcohol use. COMPARISON: CT of abdomen and pelvis from 02/26/2020 TECHNIQUE: Axial contiguous images were obtained from the lung bases to the proximal femurs without intravenous contrast administered. Sagittal and coronal reconstructions were also obtained and reviewed. This exam was performed according to our departmental dose-optimization program, which includes automated exposure control, adjustment of the mA and/or KV according to the patient's size and/or use of iterative reconstruction technique. FINDINGS: The lung bases appear clear without evidence of a focal consolidative airspace opacity or effusions. A small hiatal hernia is present. Evaluation of the solid organs is limited by the lack of intravenous contrast. The visualized hepatic parenchyma is diffusely low in attenuation. There is increased density within the gallbladder lumen which may be secondary to sludge or vicarious excretion of contrast. The spleen and pancreas are normal in contour. No gross pancreatic fluid collection is seen. The bilateral adrenal glands appear unremarkable. Both kidneys demonstrate no evidence of hydronephrosis. No renal or ureteral calculi are seen. The urinary bladder is mildly distended, and appears grossly unremarkable. The stomach is not well distended. The small bowel loops appear unremarkable. No pericolonic inflammatory stranding is seen. The appendix appears unremarkable. There is no evidence of pneumoperitoneum or free fluid. The aorta and IVC appear normal in size. There is moderate atherosclerotic calcification of aorta and into the iliac arteries. No significantly enlarged lymph nodes are seen in the abdomen or pelvis. Review of the bone show no evidence of any suspicious lytic or blastic lesions. Multilevel degenerative changes are seen within the lumbar spine. IMPRESSION: No acute process is seen within the abdomen or pelvis. Hepatic steatosis
[2020-03-14] MEDS: NORMAL SALINE 1000 ML 1,000 ML IV PRN ×2 (04:45→09:57)
[2020-03-14] MEDS: HEPARIN SOD (PORCINE) 5,000 UNIT/ML 1 ML VIAL SUBCUT SCH ×2 (05:25→13:06)
[2020-03-14] MEDS ORDERED: PANTOPRAZOLE SODIUM 40 MG TABLET.DR PO SCH (06:00)
[2020-03-14 06:36] LABS: ABSOLUTE BASOPHILS # (AUTO) 0.1 10^3/uL (0.0-0.2); ABSOLUTE LYMPHOCYTES (AUTO) 1.4 10^3/uL (0.5-4.7); ABSOLUTE MONOCYTES (AUTO) 0.4 10^3/uL (0.1-1.4); ABSOLUTE NEUT (AUTO) 3.1 10^3/uL (1.7-8.2); BASOPHILS % (AUTO) 1.6 % (0-2); EOSINOPHILS % (AUTO) 0.4 % (0-6); HEMATOCRIT 32.8 % (37.9-51.0); LYMPHOCYTES % (AUTO) 27.1 % (13-45); MEAN CORPUSCULAR VOLUME 103 fl (80-97); MONOCYTES % (AUTO) 8.5 % (3-13); PLATELET COUNT 201 10^3/uL (150-450); RED BLOOD COUNT 3.19 10^6/uL (4.35-5.55); RED CELL DISTRIBUTION WIDTH 15.1 % (11.5-14.0); SEGMENTED NEUTROPHILS % (AUTO) 62.4 % (42-78); TOTAL CELLS COUNTED % (AUTO) 100 %
[2020-03-14 06:37] LABS: HEMOGLOBIN 11.5 g/dL (13.5-17.0)
[2020-03-14 06:51] LABS: ANION GAP 6 (5-19); BLOOD UREA NITROGEN 25 mg/dL (7-20); CARBON DIOXIDE 26 mmol/L (22-30); CHLORIDE 103 mmol/L (98-107); CHOLESTEROL 194.02 mg/dL (0-200); GLUCOSE 101 mg/dL (75-110); POTASSIUM 4.1 mmol/L (3.6-5.0); TRIGLYCERIDES 60 mg/dL (<150)
[2020-03-14 07:02] LABS: DIRECT LDL 80 mg/dL (<100)
[2020-03-14] MEDS ORDERED: MAGNESIUM OXIDE 400 MG TABLET PO ONE (09:11)
[2020-03-14] MEDS: DIAZEPAM INJ 10 MG/2 ML DISP.SYRIN IV PRN (09:57)
[2020-03-14] MEDS: METOPROLOL TARTRATE 25 MG TABLET PO SCH (09:57)
[2020-03-14] MEDS: FLECAINIDE ACETATE 100 MG TABLET PO SCH (09:57)
[2020-03-14] MEDS ORDERED: THIAMINE HCL 200 MG in NORMAL SALINE 50 ML IV SCH (10:00)
[2020-03-14] MEDS ORDERED: THIAMINE HCL IV SCH (10:00)
[2020-03-14] MEDS ORDERED: NORMAL SALINE IV SCH (10:00)
[2020-03-14] MEDS ORDERED: FOLIC ACID IV SCH (10:00)
[2020-03-14] MEDS ORDERED: FOLIC ACID INJ 5 MG/1 ML 10 ML VIAL IV SCH (10:00)
--- NOTE | 2020-03-14 10:26 | EKG REPORT ---
SEVERITY:- BORDERLINE ECG - SINUS RHYTHM PROBABLE LEFT ATRIAL ABNORMALITY BORDERLINE PROLONGED QT INTERVAL : Confirmed by: Leonora Irvin 14-Mar-2020 10:26:13
--- NOTE | 2020-03-14 12:32 | PDOC DISCHARGE SUMMARY ---
Impression - Admit/DC Date/PCP Admission Date/Primary Care Provider: 03/13/20 13:49 Discharge Date: 03/14/20 - Discharge Diagnosis (1) High anion gap metabolic acidosis Is this a current diagnosis for this admission?: Yes (2) VIDAL (acute kidney injury) Is this a current diagnosis for this admission?: Yes (3) Alcoholic gastritis Is this a current diagnosis for this admission?: Yes (4) Abdominal pain Is this a current diagnosis for this admission?: Yes (5) Nausea & vomiting Is this a current diagnosis for this admission?: Yes (6) Alcohol abuse Is this a current diagnosis for this admission?: Yes (7) Alcohol intoxication Is this a current diagnosis for this admission?: Yes (8) Lactic acidosis Is this a current diagnosis for this admission?: Yes (9) Cigarette nicotine dependence Is this a current diagnosis for this admission?: Yes (10) Chest pain Is this a current diagnosis for this admission?: Yes (11) Paroxysmal atrial fibrillation Is this a current diagnosis for this admission?: Yes - Additional Information Resuscitation Status: Full Code Discharge Diet: As Tolerated Discharge Activity: Activity As Tolerated Referrals: MITESH ROBLERO DO [NO LOCAL MD] - Prescriptions: Folic Acid [Folvite 1 mg Tablet] 1 mg PO DAILY #30 tablet Pantoprazole Sodium [Protonix [address] Tablet] 40 mg PO QAM #30 tablet.dr Thiamine HCl [Thiamine 100 mg Tablet] 100 mg PO DAILY #30 tablet Ondansetron [Zofran Odt 4 mg Tablet] 1 tab PO Q4HP PRN #10 tab.rapdis PRN Reason: For Nausea/Vomiting Home Medications: Metoprolol Tartrate [Lopressor 25 mg Tablet] 12.5 mg PO BID 02/26/20 Flecainide Acetate [Tambocor 100 mg Tablet] 100 mg PO BID 03/13/20 Furosemide [Lasix 40 mg Tablet] 40 mg PO QAM 03/13/20 Folic Acid [Folvite 1 mg Tablet] 1 mg PO DAILY #30 tablet 03/14/20 Ondansetron [Zofran Odt 4 mg Tablet] 1 tab PO Q4HP PRN #10 tab.rapdis 03/14/20 Pantoprazole Sodium [Protonix [address] Tablet] 40 mg PO QAM #30 tablet.dr 03/14/20 Thiamine HCl [Thiamine 100 mg Tablet] 100 mg PO DAILY #30 tablet 03/14/20 History of Present Illiness History of Present Illness: According to admitting provider: RAMIRO BASHIR is a 64 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 He is originally from [place]. He has a history of atrial fibrillation and hypertension. He also mentions fluid in his lungs and so he likely has a history of heart failure. He states that he works construction and has been outside in the heat. He tries to keep up with his fluids. He does drink a pint of alcohol a day. Starting last night he began to have abdominal pain, nausea and vomiting. He has substernal discomfort as well. He does not have a white count. His liver enzymes are not elevated. His pancreas is normal. He will be given IV fluids keeping in mind his history of heart failure. He will have pain medicine, antiemetics and we will continue his heart medicine. Hospital Course Hospital Course: Patient was admitted to the hospital after presenting with nausea vomiting and abdominal pain. Patient had drank a pint of alcohol yesterday. Patient also known to have a history of alcohol abuse. On presentation, patient's blood work was significant for macrocytosis with MCV of 106, as well as high anion gap metabolic acidosis with bicarb of 17 and an anion gap of 31. Also noted to have lactic acidosis of 4. Urine toxicology was negative but blood toxicology revealed alcohol level of 136 indicative of intoxication. Urinalysis also revealed mild ketonuria. It was thought that patient's metabolic acidosis was likely secondary to combination of dehydration as well as alcohol intoxication and lactic acidosis from his ethanol abuse. Patient was started on IV fluids and giving thiamine/folic acids IV supplementation. His creatinine was also noted to be 2 on presentation but has improved closer to his baseline of 1.5 today. Today he is anion gap has returned back to normal and his lactic acidosis has resolved. His nausea vomiting has also resolved. I highly suspect patient's abdominal pain as well as nausea have likely from alcoholic gastritis and I have started him on Protonix. I have also encouraged him to refrain from drinking and at least discontinue heavy alcohol usage. I recommended him to follow-up with a primary care provider who he has been referred to to keep monitoring on his renal function. Physical Exam Vital Signs: Temp Pulse Resp BP Pulse Ox 97.9 F 76 16 158/86 H 100 03/14/20 04:05 03/14/20 07:00 03/14/20 04:05 03/14/20 04:05 03/14/20 04:05 Intake & Output 03/13/20 03/14/20 03/15/20 06:59 06:59 06:59 Intake Total 4000 910 Output Total 100 Balance 3900 910 Weight 85.8 kg General appearance: PRESENT: no acute distress, cooperative Neck exam: ABSENT: JVD Respiratory exam: PRESENT: unlabored. ABSENT: accessory muscle use, retraction GI/Abdominal exam: PRESENT: soft, tenderness - epigastrium and LUQ. ABSENT: distended, firm, guarding, hernia, rebound, rigid Neurological exam: PRESENT: alert, awake, oriented to person, oriented to place, oriented to time, oriented to situation Psychiatric exam: PRESENT: appropriate affect. ABSENT: agitated, anxious Results Laboratory Results: WBC 5.0 10^3/uL (4.0-10.5) 03/14/20 06:09 RBC 3.19 10^6/uL (4.35-5.55) L 03/14/20 06:09 Hgb 11.5 g/dL (13.5-17.0) L D 03/14/20 06:09 Hct 32.8 % (37.9-51.0) L 03/14/20 06:09 MCV 103 fl (80-97) H 03/14/20 06:09 MCH 36.0 pg (27.0-33.4) H 03/14/20 06:09 MCHC 35.0 g/dL (32.0-36.0) 03/14/20 06:09 RDW 15.1 % (11.5-14.0) H 03/14/20 06:09 Plt Count 201 10^3/uL (150-450) 03/14/20 06:09 Lymph % (Auto) 27.1 % (13-45) 03/14/20 06:09 Hitchcock % (Auto) 8.5 % (3-13) 03/14/20 06:09 Eos % (Auto) 0.4 % (0-6) 03/14/20 06:09 Baso % (Auto) 1.6 % (0-2) 03/14/20 06:09 Absolute Neuts (auto) 3.1 10^3/uL (1.7-8.2) 03/14/20 06:09 Absolute Lymphs (auto) 1.4 10^3/uL (0.5-4.7) 03/14/20 06:09 Absolute Monos (auto) 0.4 10^3/uL (0.1-1.4) 03/14/20 06:09 Absolute Eos (auto) 0.0 10^3/uL (0.0-0.6) 03/14/20 06:09 Absolute Basos (auto) 0.1 10^3/uL (0.0-0.2) 03/14/20 06:09 Seg Neutrophils % 62.4 % (42-78) 03/14/20 06:09 Carbonic Acid 1.02 mmol/L (1.05-1.35) L 03/13/20 17:50 HCO3/H2CO3 Ratio 22:1 03/13/20 17:50 ABG pH 7.46 (7.35-7.45) H 03/13/20 17:50 ABG pCO2 33.9 mmHg (35-45) L 03/13/20 17:50 ABG pO2 81.3 mmHg (80-100) 03/13/20 17:50 ABG HCO3 23.3 mmol/L (20-24) 03/13/20 17:50 ABG Total CO2 24.3 mmol/L (23-27) 03/13/20 17:50 ABG O2 Saturation 96.6 % (94-98) 03/13/20 17:50 ABG Base Excess -0.1 mmol/L 03/13/20 17:50 FiO2 ROOM AIR 03/13/20 17:50 Sodium 135.1 mmol/L (137-145) L 03/14/20 06:09 Potassium 4.1 mmol/L (3.6-5.0) 03/14/20 06:09 Chloride 103 mmol/L (98-107) 03/14/20 06:09 Carbon Dioxide 26 mmol/L (22-30) 03/14/20 06:09 Anion Gap 6 (5-19) 03/14/20 06:09 BUN 25 mg/dL (7-20) H 03/14/20 06:09 Creatinine 1.57 mg/dL (0.52-1.25) H 03/14/20 06:09 Est GFR ( Amer) 54 (>60) L 03/14/20 06:09 Est GFR (MDRD) Non-Af 45 (>60) L 03/14/20 06:09 Glucose 101 mg/dL (75-110) 03/14/20 06:09 POC Glucose 135 mg/dL (70-110) H 03/14/20 12:10 Lactic Acid 0.9 mmol/L (0.7-2.1) 03/14/20 06:09 Calcium 9.0 mg/dL (8.4-10.2) 03/14/20 06:09 Phosphorus 2.9 mg/dL (2.5-4.5) 03/13/20 17:05 Magnesium 1.5 mg/dL (1.6-2.3) L 03/14/20 06:09 Total Bilirubin 1.1 mg/dL (0.2-1.3) 03/13/20 09:28 Direct Bilirubin 0.2 mg/dL (0.0-0.4) 03/13/20 09:28 Neonat Total Bilirubin Not Reportable 03/13/20 09:28 Neonat Direct Bilirubin Not Reportable 03/13/20 09:28 Neonat Indirect Bili Not Reportable 03/13/20 09:28 AST 48 U/L (17-59) 03/13/20 09:28 ALT 22 U/L (<50) 03/13/20 09:28 Alkaline Phosphatase 99 U/L (38-126) 03/13/20 09:28 Creatine Kinase 217 U/L (55-170) H 03/13/20 09:28 Troponin I 0.014 ng/mL 03/13/20 09:28 Total Protein 8.8 g/dL (6.3-8.2) H 03/13/20 09:28 Albumin 4.3 g/dL (3.5-5.0) 03/13/20 17:05 Triglycerides 60 mg/dL (<150) 03/14/20 06:09 Cholesterol 194.02 mg/dL (0-200) 03/14/20 06:09 LDL Cholesterol Direct 80 mg/dL (<100) 03/14/20 06:09 VLDL Cholesterol 12.0 mg/dL (10-31) 03/14/20 06:09 HDL Cholesterol 95 mg/dL (>40) 03/14/20 06:09 Lipase 67.0 U/L (23-300) 03/14/20 06:09 Urine Color YELLOW 03/13/20 12:52 Urine Appearance CLEAR 03/13/20 12:52 Urine pH 5.0 (5.0-9.0) 03/13/20 12:52 Ur Specific Maiden 1.019 03/13/20 12:52 Urine Protein 100 mg/dL (NEGATIVE) H 03/13/20 12:52 Urine Glucose (UA) NEGATIVE mg/dL (NEGATIVE) 03/13/20 12:52 Urine Ketones 20 mg/dL (NEGATIVE) H 03/13/20 12:52 Urine Blood MODERATE (NEGATIVE) H 03/13/20 12:52 Urine Nitrite (Reflex) NEGATIVE (NEGATIVE) 03/13/20 12:52 Urine Bilirubin NEGATIVE (NEGATIVE) 03/13/20 12:52 Urine Urobilinogen NEGATIVE mg/dL (<2.0) 03/13/20 12:52 Leukocyte Esterase Rfl NEGATIVE (NEGATIVE) 03/13/20 12:52 Urine RBC (Auto) 1 /HPF 03/13/20 12:52 U Hyaline Cast (Auto) 14 /LPF 03/13/20 12:52 Urine WBC (Reflex) 1 /HPF 03/13/20 12:52 Urine Mucus (Auto) RARE /LPF 03/13/20 12:52 Urine Ascorbic Acid NEGATIVE (NEGATIVE) 03/13/20 12:52 Salicylates < 1.0 mg/dL (2.0-20.0) L 03/13/20 17:05 Urine Opiates Screen NEGATIVE 03/13/20 12:52 Urine Methadone Screen NEGATIVE 03/13/20 12:52 Ur Barbiturates Screen NEGATIVE 03/13/20 12:52 Ur Phencyclidine Scrn NEGATIVE 03/13/20 12:52 Ur Amphetamines Screen NEGATIVE 03/13/20 12:52 U Benzodiazepines Scrn NEGATIVE 03/13/20 12:52 Urine Cocaine Screen NEGATIVE 03/13/20 12:52 U Marijuana (THC) Screen NEGATIVE 03/13/20 12:52 Serum Alcohol 136 mg/dL (NONE DETECTED) 03/13/20 09:28 03/13/20 09:28 Troponin I 0.014 Impressions: Abdomen/Pelvis CT 03/13/20 00:00 IMPRESSION: No acute process is seen within the abdomen or pelvis. Hepatic steatosis Acute Abdomen Series 03/13/20 08:45 IMPRESSION: NO RADIOGRAPHIC EVIDENCE FOR ACUTE ABDOMINAL DISEASE. Plan Time Spent: Less than 30 Minutes Stroke Is this a Stroke Patient?: No Acute Heart Failure - Is this a Heart Failure Patient?: No
[2020-03-14 12:51] VITALS: BP 171/79
== END 2020-03-14 13:29 | disposition home or self-care (01) | DRG 641 ==
LOC: ER 07:05 → EH 13:49 → 3S 16:42
PROVIDERS: ADMIT Hospitalist; ATTEND Hospitalist
DX: E87.2 Acidosis (principal); N17.9 Acute kidney failure, unspecified; I11.0 Hypertensive heart disease with heart failure; I50.9 Heart failure, unspecified; F10.129 Alcohol abuse with intoxication, unspecified; I48.0 Paroxysmal atrial fibrillation; E86.0 Dehydration; K29.20 Alcoholic gastritis without bleeding; F17.210 Nicotine dependence, cigarettes, uncomplicated; R07.9 Chest pain, unspecified; Y90.6 Blood alcohol level of 120-199 mg/100 ml; Z79.899 Other long term (current) drug therapy
CPT/HCPCS: 36415; 36600; 74022; 74176; 80048; 80053; 80061; 80069; 80307; 81001; 82550; 82803; 82962; 83605; 83690; 83735; 84100; 84484; 85025; 93005; 93010; 96361; 96372; 96374; 96375; 99285; J2060; J2405; J2550; J3360; J3411; J3490; J7030; J7050